=== PATIENT | female | born 1955 | race Caucasian/White ===

== ENCOUNTER 2016-12-06 06:08 | Inpatient (IN) | payer MEDICAID ==
[2016-12-06] MEDS ORDERED: Propofol 200 MG/20 ML SDV ONE ×4 (06:25→08:24)
[2016-12-06] MEDS ORDERED: fentaNYL 100 MCG/2 ML SDV ONE (06:25)
[2016-12-06] MEDS ORDERED: Midazolam 1 MG/ML 2 ML SDV ONE (06:25)
[2016-12-06] MEDS ORDERED: ceFAZolin 2 GM in Premix Bag 1 BAG IV SCH (06:30)
[2016-12-06] MEDS ORDERED: Morphine 2 MG/ML Syringe IVPUSH PRN (06:34)
[2016-12-06] MEDS ORDERED: Cyclobenzaprine 10 MG Tab PO PRN (06:34)
[2016-12-06] MEDS ORDERED: Bisacodyl 5 MG Tab PO PRN (06:34)
[2016-12-06] MEDS ORDERED: Naloxone 0.4 MG/ML SDV IVPUSH PRN (06:34)
[2016-12-06] MEDS ORDERED: Ondansetron 4 MG/2 ML SDV IVPUSH PRN ×2 (06:34→06:43)
--- NOTE | 2016-12-06 06:39 | PCM.PREANE ---
Preanesthetic Assessment - Anesthesia/Transfusion/Family Hx Anesthesia History: Prior Anesthesia Without Reaction Type of Anesthesia Reaction: Other (see below) Family History of Anesthesia Reaction: No Transfusion History: No Prior Transfusion(s) Type of Transfusion Reactions: Reports: Other (see below) - Review of Systems General: No Symptoms Pulmonary: Shortness of Breath (stress done, negative), Cough (chronic cough, SOB) Cardiovascular: No Symptoms (stress test completed, negative EF65-80%) Gastrointestinal: No symptoms Neurological: No Symptoms - Physical Assessment NPO Status Date: 12/05/16 NPO Status Time: 21:30 Pulse: 65 O2 Sat by Pulse Oximetry: 94 Respiratory Rate: 15 Blood Pressure: 132/78 Temperature: 36.4 C Weight: 111.13 kg ASA Class: 3 Mental Status: Alert & Oriented x3 Dentition: Reports: Dentures Thyro-Mental Finger Breadths: 3 Mouth Opening Finger Breadths: 3 ROM/Head Extension: Full (upper) Lungs: Clear to auscultation Cardiovascular: Regular Rate, Regular Rhythm - Allergies Allergies/Adverse Reactions: Allergies Allergy/AdvReac Type Severity Reaction Status Date / Time YUKO Inhibitors Allergy Cough Verified 12/05/16 19:17 Sulfa (Sulfonamide Allergy hives, Verified 12/05/16 19:17 Antibiotics) itching, respiratory distress - Blood Blood Available: No Product(s) Available: None - Anesthesia Plan Pre-Op Medication Ordered: None Beta Mona: Metoprolol Med Last Dose Date: 12/05/16 Med Last Dose Time: 21:30 - Acknowledgements Anesthesia Type Planned: Spinal Pt an Appropriate Candidate for the Planned Anesthesia: Yes Alternatives and Risks of Anesthesia Discussed w Pt/Guardian: Yes Pt/Guardian Understands and Agrees with Anesthesia Plan: Yes PreAnesthesia Questionnaire HEENT History: Reports: Other (see below) Other HEENT History: upper denture Cardiovascular History: Reports: Hypertension, Other (see below) Other Cardiovascular History: PACs Respiratory History: Reports: SOB, Other (see below) Other Respiratory History: chronic cough 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 Musculoskeletal History: Reports: Osteoarthritis Neurological History: Reports: None Psychiatric History: Reports: Anxiety, Depression, Other (see below) Other Psychiatric History: fatigue Endocrine/Metabolic History: Reports: Hypothyroidism, Vitamin D deficiency Hematologic History: Reports: None Immunologic History: Reports: None Oncologic (Cancer) History: Reports: None Dermatologic History: Reports: Other (see below) Other Dermatologic History: fatty 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 - Past Surgical History Head Surgeries/Procedures: Reports: None HEENT Surgical History: Reports: Tonsillectomy Cardiovascular Surgical History: Reports: Other (see below) Other Cardiovascular Surgeries/Procedures: heart surgery at age 4, "valve wouldnt close all the way" GI Surgical History: Reports: Appendectomy Female Surgical History: Reports: Hysterectomy - SUBSTANCE USE Smoking Status *Q: Former Smoker Recreational Drug Use History: No - HOME MEDS Home Medications: Home Meds Furosemide [Lasix] 40 mg PO DAILY PRN 12/05/16 [History] Metoprolol Succinate 50 mg PO DAILY 12/05/16 [History] Zolpidem Tartrate [Ambien] 2.5 mg PO BEDTIME PRN 12/05/16 [History] amLODIPine Besylate [Amlodipine Besylate] 5 mg PO DAILY 12/05/16 [History] - CURRENT (IN HOUSE) MEDS Current Meds: Current Medications Lactated Ringer's (Ringers, Lactated) 1,000 mls @ 125 mls/hr IV ASDIRECTED CELIO Lidocaine/Sodium Bicarbonate (Buffered Lidocaine 1% In Ns 8.4%) 0.25 ml IV ONETIME PRN PRN Reason: Prior to IV Start Sodium Chloride (Saline Flush) 10 ml FLUSH ASDIRECTED PRN PRN Reason: Keep Vein Open Discontinued Medications Bupivacaine HCl (Sensorcaine-Mpf 0.25%) Confirm Administered Dose 10 ml .ROUTE .STK-MED ONE Stop: 12/06/16 06:10 Bupivacaine HCl (Marcaine 0.25%) Confirm Administered Dose 30 ml .ROUTE .STK- MED ONE Stop: 12/06/16 06:10 Cefazolin Sodium (Ancef) Confirm Administered Dose 2 gm .ROUTE .STK-MED ONE Stop: 12/06/16 06:10 Fentanyl (Sublimaze) Confirm Administered Dose 100 mcg .ROUTE .STK-MED ONE Stop: 12/06/16 06:26 Iodine (Iodine 2% Mild Tincture) Confirm Administered Dose 30 ml .ROUTE .STK- MED ONE Stop: 12/06/16 06:10 Midazolam HCl (Versed 1 Mg/Ml) Confirm Administered Dose 2 mg .ROUTE .STK-MED ONE Stop: 12/06/16 06:26 Propofol (Diprivan 20 Ml) Confirm Administered Dose 200 mg .ROUTE .STK-MED ONE Stop: 12/06/16 06:26 Tranexamic Acid (Cyklokapron) Confirm Administered Dose 1,000 mg .ROUTE .STK- MED ONE Stop: 12/06/16 06:10 Triamcinolone Acetonide (Kenalog-40) Confirm Administered Dose 80 mg .ROUTE .STK -MED ONE Stop: 12/06/16 06:10
[2016-12-06] MEDS ORDERED: fentaNYL 100 MCG/2 ML SDV IVPUSH PRN (06:43)
[2016-12-06] MEDS ORDERED: HYDROmorphone 0.5 MG/0.5 ML Syringe IVPUSH PRN (06:43)
[2016-12-06] MEDS ORDERED: Metoclopramide 10 MG/2 ML SDV IVPUSH PRN (06:43)
--- NOTE | 2016-12-06 06:51 | PCM.CONS ---
H&P History of Present Illness - General Date of Service: 12/06/16 Admit Problem/Dx: Admission Diagnosis/Problem Admission Diagnosis/Problem Osteoarthritis of knee Source of Information: Patient, Old records, Provider, RN notes reviewed History Limitations: Reports: Physical impairment - History of Present Illness Initial Comments - Free Text/Narative: This is a 61-year-old, white female, with past medical history of Hypertension, OA, Exertional Shortness of Breath, Essential Tremors, Hypothyroidism, Anxiety and Depression Vitamin D Deficiency, ET and Obesity who underwent right total knee arthroplasty and left knee joint injection post operative day zero. Patient seems to be doing relatively well. Her pain is controlled. She denies any acute issues. Hospital Medicine was consulted for postoperative care. - Related Data Allergies/Adverse Reactions: Allergies Allergy/AdvReac Type Severity Reaction Status Date / Time YUKO Inhibitors Allergy Cough Verified 12/06/16 07:12 Sulfa (Sulfonamide Allergy hives, Verified 12/06/16 07:12 Antibiotics) itching, respiratory distress Home Medications: Home Meds Furosemide [Lasix] 40 mg PO DAILY PRN 12/05/16 [History] Metoprolol Succinate 50 mg PO DAILY 12/05/16 [History] Zolpidem Tartrate [Ambien] 2.5 mg PO BEDTIME PRN 12/05/16 [History] amLODIPine Besylate [Amlodipine Besylate] 5 mg PO DAILY 12/05/16 [History] Past Medical History HEENT History: Reports: Other (see below) Other HEENT History: upper denture Cardiovascular History: Reports: Hypertension, Other (see below) Other Cardiovascular History: PACs Respiratory History: Reports: SOB, Other (see below) Other Respiratory History: chronic cough 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 Musculoskeletal History: Reports: Osteoarthritis Neurological History: Reports: None Psychiatric History: Reports: Anxiety, Depression, Other (see below) Other Psychiatric History: fatigue Endocrine/Metabolic History: Reports: Hypothyroidism, Vitamin D deficiency Hematologic History: Reports: None Immunologic History: Reports: None Oncologic (Cancer) History: Reports: None Dermatologic History: Reports: Other (see below) Other Dermatologic History: fatty 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 - Past Surgical History Head Surgeries/Procedures: Reports: None HEENT Surgical History: Reports: Tonsillectomy Cardiovascular Surgical History: Reports: Other (see below) Other Cardiovascular Surgeries/Procedures: heart surgery at age 4, "valve wouldnt close all the way" GI Surgical History: Reports: Appendectomy Female Surgical History: Reports: Hysterectomy Social & Family History - Tobacco Use Smoking Status *Q: Former Smoker Used Tobacco, but Quit: Yes Month Tobacco Last Used: 1999 - Caffeine Use Caffeine Use: Reports: None - Recreational Drug Use Recreational Drug Use: No H&P Review of Systems - Review of Systems: Review Of Systems: See Below General: Denies: fever, chills, malaise, weakness, fatigue HEENT: Reports: no symptoms Pulmonary: Denies: Shortness of Breath, Wheezing Cardiovascular: Denies: chest pain, palpitations, dyspnea on exertion, edema, lightheadedness Gastrointestinal: Denies: Abdominal pain, Nausea, Vomiting Genitourinary: Reports: no symptoms Musculoskeletal: Reports: no symptoms Skin: Denies: cyanosis, rash Psychiatric: Denies: depression, anxiety, hallucinations, suicidal ideation Neurological: Reports: Tremors (baseline), Difficulty Walking, Gait Disturbance. Denies: Confusion, Weakness Hematologic/Lymphatic: Reports: no symptoms Immunologic: Reports: no symptoms Exam - Exam Exam: See Below - Vital Signs Vital Signs: Last Vital Signs Temp 36.4 C 12/06/16 06:42 Pulse 65 12/06/16 06:42 Resp 15 12/06/16 06:42 BP 132/78 12/06/16 06:42 Pulse Ox 94 L 12/06/16 06:42 Weight: 111.13 kg - Exam Quality Assessment: supplemental oxygen General: alert, oriented, cooperative, other (Obese). No: mild distress HEENT: Conjunctiva clear, EACs clear, EOMI, Hearing intact, Mucosa moist & pink , Nares patent, Normal nasal septum, Posterior pharynx clear, Pupils equal, Pupils reactive Neck: supple, trachea midline, 2+ carotid pulse wo bruit, full range of motion. No: JVD Lungs: Clear to auscultation, Normal respiratory effort Cardiovascular: regular rate, regular rhythm Abdomen: normal bowel sounds, soft, organomegaly, other (Obese) (Female) Exam: Other (Indwelling miller catheter) Rectal (Female) Exam: Deferred Back Exam: normal inspection, decreased range of motion Extremities: normal inspection, normal pulses. No: clubbing, cyanosis, calf tenderness, edema Peripheral Pulses: 2+: posterior tibial (L), dorsalis pedis (R), 3+: dorsalis pedis (L) Skin: warm, dry, intact Neuro Extensive - Mental Status: oriented x3, normal cognition, memory intact Neuro Extensive - Motor, Sensory, Reflexes: CN II-XII intact (limitd but fairly intact), abnormal gait Psychiatric: alert, normal affect, normal mood Consult PN Assessment/Plan POD#: 0 Problem List Initiated/Reviewed/Updated: Yes Plan: Assessment: Acute: Post-Operative Care State - Stable - Continue to monitor for hemodynamic instability S/p Right Total Knee Arthroplasty and Left Knee Joint Injection - Stable - DVT and Pain Management as per primary team Hx/o Chronic B/L Knee Pain - Pain Management as per primary team Chronic: HTN Exertional Shortness of Breath Essential Tremors Hypothyroidism Anxiety and Depression Vitamin D Deficiency Morbid Obesity with BMI 40.8 Plan: She is clinically stable Routine AM labs Continue home meds IS q2 awake Thank you for the opportunity to participate in the management of this patient. Requesting Provider: Dr. Mera Date Consult Requested: 12/06/16 Reason for Consult: Post-Operative Care Patient History Reviewed: Yes Admission H&P Reviewed: Yes Consult Result/Summary: Stable
[2016-12-06] MEDS ORDERED: Morphine PF 10 MG/10 ML SDV ONE (06:54)
[2016-12-06] MEDS ORDERED: Sodium Chloride 0.9% 10 ML Syringe FLUSH PRN (07:00)
[2016-12-06] MEDS ORDERED: Lactated Ringers 1,000 ML IV SCH (07:00)
[2016-12-06] MEDS ORDERED: Lidocaine 1%/Sod Bicarbonate in NS 8.4% 1 ML Syringe IV PRN (07:00)
[2016-12-06] MEDS ORDERED: Phenylephrine/Normal Saline 100 MCG/ML 10 ML Syringe ONE (07:35)
[2016-12-06] MEDS: Morphine 8 MG, EPINEPHrine 0.3 MG, Cefuroxime 750 MG, Ketorolac 30 MG, Sodium Chloride ... ONE ×15 (07:51→11:23)
[2016-12-06] MEDS: ceFAZolin 1 GM Vial ONE ×2 (07:51→08:18)
[2016-12-06] MEDS: Iodine/Sodium Iodide 2% Tincture 30 ML Bottle ONE ×2 (07:51→08:14)
[2016-12-06] MEDS: Bupivacaine 0.25% 30 ML SDV ONE ×2 (07:52→08:23)
[2016-12-06] MEDS: Bupivacaine 0.25% 10 ML SDV ONE ×2 (07:52→08:50)
[2016-12-06] MEDS: Triamcinolone Acetonide 40 MG/ML 1 ML MDV ONE ×2 (07:53→08:50)
[2016-12-06] MEDS ORDERED: ePHEDrine/Normal Saline 25 MG/5 ML Syringe ONE (08:19)
[2016-12-06] MEDS ORDERED: Lactated Ringers 1,000 ML ONE ×2 (08:53)
--- NOTE | 2016-12-06 09:08 | PCM.POSTAN ---
POST ANESTHESIA ASSESSMENT - MENTAL STATUS Mental Status: alert, oriented - VITAL SIGNS Pulse Rate: 79 SaO2: 94 Resp Rate: 16 Blood Pressure: 96/67 Temperature: 37.0 C - RESPIRATORY Respiratory Status: respiratory rate WNL, airway patent, O2 saturation stable, supplemental oxygen - CARDIOVASCULAR CV Status: pulse rate WNL, blood pressure stable - GASTROINTESTINAL GI Status: no symptoms - PAIN Pain Score: 0 - POST OP HYDRATION Hydration Status: adequate & stable
[2016-12-06] MEDS ORDERED: Meperidine PF 50 MG/ML Syringe IVPUSH SCH (09:30)
--- NOTE | 2016-12-06 10:02 | PCM.OPNOTE ---
- General Post-Op/Procedure Note Date of Surgery/Procedure: 12/06/16 Operative Procedure(s): right total knee arthroplasty with left knee corticosteroid injection Pre Op Diagnosis: right knee osteoarthrosis Post-Op Diagnosis: Same Anesthesia Technique: Local, MAC, Spinal Primary Surgeon: Rajinder Mera Anesthesia Provider: Latisha Gr Housekeeping Aid: Lisa Hastings Housekeeping Aid: Deysi Vogt EBL in mLs: 200 Complications: None Condition: Good
--- NOTE | 2016-12-06 10:18 | CR ---
Right knee: Two views of the right knee were obtained. Comparison: No previous knee exam. Knee prosthesis is seen. Components are aligned. Underlying bony structures are intact. Soft tissue air noted secondary to the procedure. Impression: 1. Recently placed right knee prosthesis. No acute abnormality is appreciated. Diagnostic code #2
[2016-12-06] MEDS: diphenhydrAMINE 50 MG/ML SDV IVPUSH PRN ×2 (11:05→19:11)
[2016-12-06] MEDS: Famotidine 20 MG Tab PO SCH ×2 (11:22→18:38)
[2016-12-06] MEDS ORDERED: Temazepam 15 MG Cap PO PRN (13:44)
[2016-12-06] MEDS: ceFAZolin 2 GM in Premix Bag 1 BAG IV SCH ×2 (15:15→21:52)
[2016-12-06] MEDS ORDERED: Furosemide 40 MG Tab PO PRN (16:00)
--- NOTE | 2016-12-06 17:57 | OR ---
DATE OF OPERATION: 12/06/2016 SURGEON: Rajinder Mera MD OPERATION PERFORMED: Right total knee arthroplasty with left knee corticosteroid injection. PREOPERATIVE DIAGNOSIS: Right knee osteoarthrosis. POSTOPERATIVE DIAGNOSIS: Right knee osteoarthrosis. ANESTHESIA: Local MAC with spinal. ANESTHESIA PROVIDER: Latisha Gr CRNA. FLOW TRADER: Lisa Hastings PA-C and Deysi Vogt LPN. ESTIMATED BLOOD LOSS: 200 mL. COMPLICATIONS: None. CONDITION: Stable. IMPLANTS: 1. [place] size 4 PS femur. 2. Bronson size 4 universal tibial baseplate. 3. Bronson size 4 of 9 mm PS X3 polyethylene. 4. [place] 29 x 9 mm asymmetric patella. DESCRIPTION OF PROCEDURE: The patient was identified in the preop holding area. Proper site was marked and identified by the surgeon. The patient was taken back to the operating theater. After adequate anesthesia, the patient's right lower extremity had a nonsterile tourniquet applied and it was then sterilely prepped and draped in the usual sterile fashion. OR timeout was performed. The patient received 2 g IV Ancef. At this time, the right lower extremity was exsanguinated. Tourniquet was insufflated to 300 mmHg. Standard medial parapatellar incision was made. Medial parapatellar arthrotomy was created. Deep fibers of the MCL were raised and anterior fat pad was resected. At this time, attention was turned to the patella. Patella measured 22, it was resected to a 13 for a 29 x 9 mm patella. Drill holes were then drilled and found to be in adequate position. The drill was then drilled in the distal femur and the intramedullary distal femoral cutting guide was then placed. 8 mm was resected off the distal femur and was found to be an adequate resection. Sizing guide was placed. It was found to be a size 4 PS femur that was shown on the implant record at the beginning of this dictation. The drill holes were drilled for the epicondylar axis using Whitesides line and epicondyles as reference. At this time, the 4-in- 1 cutting block was placed. An anterior posterior and anterior and posterior chamfer cuts were then completed. The correct size box cut was then placed and the box cut was completed and found to be an adequate resection. Attention was turned to the tibia. The posterior medial lateral retractors were placed. The extramedullary tibial guide was placed. It was placed in the old footprint of the ACL. It was aligned with the center of the ankle and 0 degrees of slope, 9 mm was then resected off the unaffected lateral side. There was found to be an acceptable reduction. At this time, posterior osteophytes were removed along with medial and lateral meniscus. A trial implant was placed with a correct sized tibia that was mentioned at the beginning of the dictation. A 9 mm X3 PS polyethylene was then placed. The patient's knee was brought through range of motion. The patella was tracking centrally and was stable to varus and valgus stress. Alignment was found to be roughly at 0 degrees. At this time, cement was mixed on the back table. The tibia was stamped and drilled in proper rotation. All cut surfaces were irrigated with pulse lavage irrigation with Ancef and then completely dried. Once this was completed, then the cement was ready. The universal tibial base plate was cemented in place. Next, 4 PS femur cemented into place and the 9 mm X3 polyethylene was placed. The patient's knee was brought into full extension. Excess cement was removed. The patella was then cemented in place at this time. Tourniquet was deflated. One liter dilute Betadine solution was irrigated through the knee along with 3 L of pulse lavage irrigation with Ancef. Periarticular injection was then completed. The patient's knee was brought through a range of motion. Once the cement had time to set up and it was found to be stable to varus valgus stress, the patella was tracking centrally with full range of motion. At this time, a #2 barbed suture was used for closure of the medial parapatellar arthrotomy. Topical tranexamic acid was placed. 2-0 Vicryl was used subcutaneously, a running 3-0 Monocryl was used subcuticularly. The patient tolerated the procedure well and was sent to the PACU in stable condition. The patient also received a corticosteroid injection after the right total knee dressing was applied under sterile technique 2 mL of 40 mg Kenalog and 4 mL of 0.25% Marcaine were injected to the left knee. The patient tolerated that as well. MMODAL /[id number]
[2016-12-06] MEDS: Acetaminophen/oxyCODONE 325-5 MG Tab PO PRN (20:46)
[2016-12-06] MEDS: amLODIPine 5 MG Tab PO SCH (20:53)
[2016-12-06] MEDS: Docusate Sodium 100 MG Cap PO SCH (20:53)
[2016-12-06] MEDS: Metoprolol Succinate 50 MG Tab.ER PO SCH (20:54)
[2016-12-06] MEDS ORDERED: Zolpidem 5 MG Tab PO PRN (21:00)
[2016-12-06] MEDS ORDERED: Magnesium Hydroxide 400 MG/5 ML Susp 30 ML Cup PO PRN (21:00)
[2016-12-06] MEDS ORDERED: Sennosides 8.6 MG Tab PO PRN (21:00)
[2016-12-07] MEDS: Acetaminophen/oxyCODONE 325-5 MG Tab PO PRN ×3 (06:55→14:51)
[2016-12-07] MEDS: ceFAZolin 2 GM in Premix Bag 1 BAG IV SCH (06:59)
[2016-12-07] MEDS: Famotidine 20 MG Tab PO SCH (06:59)
[2016-12-07] MEDS ORDERED: Multivitamins,Therapeutic Tab PO SCH (07:00)
--- NOTE | 2016-12-07 07:44 | PCM.CONSN ---
- General Info Date of Service: 12/07/16 Admission Dx/Problem (Free Text): Admission Diagnosis/Problem Admission Diagnosis/Problem Osteoarthritis of knee POD #[address] Mera Doing well, pain under good to fair control. Worked with PT already this am. VSS Functional Status: Reports: pain controlled, tolerating diet, ambulating, urinating. Denies: new symptoms - Review of Systems General: Reports: No Symptoms HEENT: Reports: no symptoms Pulmonary: Reports: no symptoms Cardiovascular: Reports: No Symptoms Gastrointestinal: Reports: No symptoms Genitourinary: Reports: no symptoms Musculoskeletal: Reports: leg pain Skin: Reports: no symptoms Neurological: Reports: No Symptoms Psychiatric: Reports: no symptoms - Patient Data Vitals - most recent: Last Vital Signs Temp 97.7 F 12/07/16 01:08 Pulse 61 12/07/16 01:10 Resp 18 12/07/16 01:08 BP 123/69 12/07/16 01:10 Pulse Ox 96 12/07/16 01:10 Weight - most recent: 245 lb I&O - last 24 hours: Intake & Output 12/06/16 12/07/16 12/07/16 22:59 06:59 14:59 Intake Total 2970 50 Output Total 1850 Balance 1120 50 Lab Results last 24 hrs: Laboratory Results - last 24 hr 12/07/16 Range/Units 05:56 WBC 11.15 H (3.98-10.04) K/mm3 RBC 4.20 (3.98-5.22) M/mm3 Hgb 12.5 (11.2-15.7) gm/L Hct 38.6 (34.1-44.9) % MCV 91.9 (79.4-94.8) fl MCH 29.8 (25.6-32.2) pg MCHC 32.4 (32.2-35.5) g/dl RDW Std Deviation 45.9 (36.4-46.3) fL Plt Count 278 (182-369) K/mm3 MPV 10.2 (9.4-12.3) fl Neut % (Auto) 85.8 H (34.0-71.1) % Lymph % (Auto) 8.0 L (19.3-51.7) % [place] % (Auto) 6.0 (4.7-12.5) % Eos % (Auto) 0 L (0.7-5.8) Baso % (Auto) 0.0 L (0.1-1.2) % Neut # (Auto) 9.57 H (1.56-6.13) K/mm3 Lymph # (Auto) 0.89 L (1.18-3.74) K/mm3 [place] # (Auto) 0.67 H (0.24-0.36) K/mm3 Eos # (Auto) 0.00 L (0.04-0.36) K/mm3 Baso # (Auto) 0.00 L (0.01-0.08) K/mm3 Manual Slide Review Abnormal smear Med Orders - Current: Current Medications Amlodipine Besylate (Norvasc) 5 mg PO DAILY [facility] Last Admin: 12/06/16 20:53 Dose: 5 mg Aspirin (Ecotrin) 325 mg PO BID [facility] Bisacodyl (Dulcolax) 5 mg PO DAILY PRN PRN Reason: Constipation Cyclobenzaprine HCl (Flexeril) 10 mg PO TID PRN PRN Reason: Spasms Last Admin: 12/07/16 05:18 Dose: 10 mg Diphenhydramine HCl (Benadryl) 25 mg IVPUSH Q6H PRN PRN Reason: itching Last Admin: 12/06/16 19:11 Dose: 25 mg Docusate Sodium (Colace) 100 mg PO BID [facility] Last Admin: 12/06/16 20:53 Dose: 100 mg Famotidine (Pepcid) 20 mg PO Q12H [facility] Last Admin: 12/07/16 06:59 Dose: 20 mg Furosemide (Lasix) 40 mg PO DAILY PRN PRN Reason: swelling Magnesium Hydroxide (Milk Of Magnesia) 30 ml PO BID PRN PRN Reason: Constipation Metoclopramide HCl (Reglan) 10 mg IVPUSH ONETIME PRN PRN Reason: Nausea/Vomiting Metoprolol Succinate (Toprol Xl) 50 mg PO DAILY [facility] Last Admin: 12/06/16 20:54 Dose: 50 mg Morphine Sulfate (Morphine) 2 mg IVPUSH Q2H PRN PRN Reason: Breakthrough Pain Multivitamins (Thera) 1 each PO WITHBREAKFAST [facility] Last Admin: 12/07/16 06:59 Dose: 1 each Ondansetron HCl (Zofran) 4 mg IVPUSH Q6H PRN PRN Reason: Nausea/Vomiting Ondansetron HCl (Zofran) 4 mg IVPUSH ONETIME PRN PRN Reason: Nausea/Vomiting Oxycodone/Acetaminophen (Percocet 325-5 Mg) 1 - 2 tab PO Q4H PRN PRN Reason: Pain Last Admin: 12/07/16 06:55 Dose: 2 tab Senna (Senna) 8.6 mg PO BID PRN PRN Reason: Constipation Sodium Chloride (Saline Flush) 10 ml FLUSH ASDIRECTED PRN PRN Reason: Keep Vein Open Temazepam (Restoril) 15 mg PO BEDTIME PRN PRN Reason: Insomnia Zolpidem Tartrate (Ambien) 2.5 mg PO BEDTIME PRN PRN Reason: Insomnia Discontinued Medications Amlodipine Besylate (Norvasc) 5 mg PO DAILY [facility] Bupivacaine HCl (Sensorcaine-Mpf 0.25%) Confirm Administered Dose 10 ml .ROUTE .STK-MED ONE Stop: 12/06/16 06:10 Last Admin: 12/06/16 08:50 Dose: 4 ml Bupivacaine HCl (Marcaine 0.25%) Confirm Administered Dose 30 ml .ROUTE .STK- MED ONE Stop: 12/06/16 06:10 Last Admin: 12/06/16 08:23 Dose: 30 ml Cefazolin Sodium (Ancef) Confirm Administered Dose 2 gm .ROUTE .STK-MED ONE Stop: 12/06/16 06:10 Last Admin: 12/06/16 08:18 Dose: 2 gm Morphine Sulfate 8 mg/Epinephrine HCl 0.3 mg/Cefuroxime Sodium 750 mg/Ketorolac Tromethamine 30 mg/Sodium Chloride 27.9 ml 0 mg .XX ONETIME ONE Stop: 12/06/16 07:46 Last Admin: 12/06/16 11:23 Dose: Not Given Ephedrine Sulfate (Ephedrine In Ns) Confirm Administered Dose 25 mg .ROUTE .STK- MED ONE Stop: 12/06/16 08:20 Fentanyl (Sublimaze) Confirm Administered Dose 100 mcg .ROUTE .STK-MED ONE Stop: 12/06/16 06:26 Fentanyl (Sublimaze) 50 mcg IVPUSH Q5M PRN PRN Reason: pain Hydromorphone HCl (Dilaudid) 0.5 mg IVPUSH Q15M PRN PRN Reason: Pain (severe 7-10) Stop: 12/06/16 06:59 Lactated Ringer's (Ringers, Lactated) 1,000 mls @ 125 mls/hr IV ASDIRECTED [facility] Last Admin: 12/06/16 06:30 Dose: 125 mls/hr Cefazolin Sodium/Dextrose 2 gm (/ Premix) 50 mls @ 100 mls/hr IV Q8H [facility] Stop: 12/06/16 22:59 Last Admin: 12/06/16 15:14 Dose: Not Given Lactated Ringer's (Ringers, Lactated) Confirm Administered Dose 1,000 mls @ as directed .ROUTE .STK-MED ONE Stop: 12/06/16 08:54 Lactated Ringer's (Ringers, Lactated) Confirm Administered Dose 1,000 mls @ as directed .ROUTE .STK-MED ONE Stop: 12/06/16 08:54 Cefazolin Sodium/Dextrose 2 gm (/ Premix) 50 mls @ 100 mls/hr IV Q8H [facility] Stop: 12/07/16 06:59 Last Admin: 12/07/16 06:59 Dose: 100 mls/hr Iodine (Iodine 2% Mild Tincture) Confirm Administered Dose 30 ml .ROUTE .STK- MED ONE Stop: 12/06/16 06:10 Last Admin: 12/06/16 08:14 Dose: 18 ml Lidocaine/Sodium Bicarbonate (Buffered Lidocaine 1% In Ns 8.4%) 0.25 ml IV ONETIME PRN PRN Reason: Prior to IV Start Last Admin: 12/06/16 06:29 Dose: 0.25 ml Meperidine HCl (Demerol) 12.5 mg IVPUSH ONETIME [facility] Stop: 12/06/16 18:00 Last Admin: 12/06/16 09:40 Dose: 12.5 mg Metoprolol Succinate (Toprol Xl) 50 mg PO DAILY [facility] Midazolam HCl (Versed 1 Mg/Ml) Confirm Administered Dose 2 mg .ROUTE .STK-MED ONE Stop: 12/06/16 06:26 Morphine Sulfate (Duramorph Pf) Confirm Administered Dose 10 mg .ROUTE .STK-MED ONE Stop: 12/06/16 06:55 Naloxone HCl (Narcan) 0.1 mg IVPUSH Q5M PRN PRN Reason: Oversedation Stop: 12/06/16 06:50 Phenylephrine HCl (Phenylephrine In Ns 100 Mcg/Ml) Confirm Administered Dose 1 mg .ROUTE .STK-MED ONE Stop: 12/06/16 07:36 Propofol (Diprivan 20 Ml) Confirm Administered Dose 200 mg .ROUTE .STK-MED ONE Stop: 12/06/16 06:26 Propofol (Diprivan 20 Ml) Confirm Administered Dose 200 mg .ROUTE .STK-MED ONE Stop: 12/06/16 06:57 Propofol (Diprivan 20 Ml) Confirm Administered Dose 200 mg .ROUTE .STK-MED ONE Stop: 12/06/16 07:43 Propofol (Diprivan 20 Ml) Confirm Administered Dose 200 mg .ROUTE .STK-MED ONE Stop: 12/06/16 08:25 Tranexamic Acid (Cyklokapron) Confirm Administered Dose 1,000 mg .ROUTE .STK- MED ONE Stop: 12/06/16 06:10 Last Admin: 12/06/16 08:29 Dose: 1,000 mg Triamcinolone Acetonide (Kenalog-40) Confirm Administered Dose 80 mg .ROUTE .STK -MED ONE Stop: 12/06/16 06:10 Last Admin: 12/06/16 08:50 Dose: 80 mg - Exam Quality Assessment: supplemental oxygen (1L/NC overnight), DVT prophylaxis General: alert, oriented, cooperative, no acute distress HEENT: Pupils equal, Pupils reactive, EOMI, Mucous membr. moist/pink Neck: supple Lungs: Clear to auscultation, Normal respiratory effort Cardiovascular: Regular Rate, Regular Rhythm Abdomen: bowel sounds present, soft, no tenderness, no distension (Female) Exam: Deferred Extremities: no edema, no calf tenderness, other (teds/SCD's bilat) Peripheral Pulses: 1+: dorsalis pedis (L), dorsalis pedis (R) Skin: warm, dry, intact Neurological: no new focal deficit Psy/Mental Status: alert, normal affect, normal mood Consult PN Assessment/Plan POD#: 1 (1) S/P total knee arthroplasty SNOMED Code(s): 6408436283192, 159414515, 2958814964152 Code(s): Z96.659 - PRESENCE OF UNSPECIFIED ARTIFICIAL KNEE JOINT Priority: High Current Visit: Yes Qualifiers: Laterality: right Qualified Code(s): Z96.651 - Presence of right artificial knee joint (2) Osteoarthritis SNOMED Code(s): 592972982 Code(s): M19.90 - UNSPECIFIED OSTEOARTHRITIS, UNSPECIFIED SITE Priority: High Current Visit: Yes Qualifiers: Osteoarthritis location: knee Osteoarthritis type: primary Laterality: right Qualified Code(s): M17.11 - Unilateral primary osteoarthritis, right knee (3) HTN (hypertension) SNOMED Code(s): 25398739 Code(s): I10 - ESSENTIAL (PRIMARY) HYPERTENSION Priority: Medium Current Visit: No Qualifiers: Hypertension type: essential hypertension Qualified Code(s): I10 - Essential (primary) hypertension (4) Hypothyroid SNOMED Code(s): 71030542 Code(s): E03.9 - HYPOTHYROIDISM, UNSPECIFIED Priority: Medium Current Visit: No Qualifiers: Hypothyroidism type: unspecified Qualified Code(s): E03.9 - Hypothyroidism , unspecified (5) Obesity SNOMED Code(s): 236814132 Code(s): E66.9 - OBESITY, UNSPECIFIED Priority: Medium Current Visit: No Qualifiers: Obesity type: unspecified obesity type Obesity severity: morbid Qualified Code(s): E66.01 - Morbid (severe) obesity due to excess calories (6) Essential tremor SNOMED Code(s): 441174286 Code(s): G25.0 - ESSENTIAL TREMOR Priority: Medium Current Visit: No (7) Anxiety and depression SNOMED Code(s): 620841279 Code(s): F41.9 - ANXIETY DISORDER, UNSPECIFIED; F32.9 - MAJOR DEPRESSIVE DISORDER, SINGLE EPISODE, UNSPECIFIED Priority: Medium Current Visit: No (8) Hypovitaminosis D SNOMED Code(s): 42578605 Code(s): E55.9 - VITAMIN D DEFICIENCY, UNSPECIFIED Priority: Medium Current Visit: No Problem List Initiated/Reviewed/Updated: Yes Plan: I/P: S/P Rt TKA with Dr. Mera, POD #1 -DVT and pain management per Ortho/primary team -PT/OT -IS/RT -VSS -Hgb 12.5 - O2 weaned this am Chronic conditions: stable, cont usual home meds HTN Hypothyroidism Obesity Hypovitaminosis D Anxiety/Depression Essential tremor Other: GI prophylax CM/LOW for assistance with DC planning She is stable for discharge from Hospitalist standpoint today. Family however is no longer able to stay with her, SW is working with her on DC plan. Patient is Full Code status.
--- NOTE | 2016-12-07 08:14 | PCM48HPAN ---
Post Anesthesia Note - EVALUATION WITHIN 48HRS OF ANESTHETIC Vital Signs in Normal Range: Yes Patient Participated in Evaluation: Yes Respiratory Function Stable: Yes Airway Patent: Yes Cardiovascular Function Stable: Yes Hydration Status Stable: Yes Pain Control Satisfactory: Yes Nausea and Vomiting Control Satisfactory: Yes Mental Status Recovered: Yes
[2016-12-07] MEDS ORDERED: Metoprolol Succinate 50 MG Tab.ER PO SCH (09:00)
[2016-12-07] MEDS ORDERED: amLODIPine 5 MG Tab PO SCH (09:00)
[2016-12-07] MEDS ORDERED: Aspirin 325 MG Tab.EC PO SCH (09:00)
[2016-12-07] MEDS: Metoprolol Succinate 50 MG Tab.ER PO SCH (09:09)
[2016-12-07] MEDS: amLODIPine 5 MG Tab PO SCH (09:09)
[2016-12-07] MEDS: Docusate Sodium 100 MG Cap PO SCH (09:09)
[2016-12-07 11:55] VITALS: BP 117/83
--- NOTE | 2016-12-07 17:07 | PCM.SURGPN ---
- General Info Date of Service: 12/07/16 POD#: 1 Functional Status: Reports: pain controlled, tolerating diet, ambulating, urinating, other (The pt has met inpatient therapy goals and nursing states the pt has been independent in her room.). Denies: new symptoms - Patient Data Vitals - most recent: Last Vital Signs Temp 97.2 F 12/07/16 11:46 Pulse 62 12/07/16 11:46 Resp 14 12/07/16 11:46 BP 117/83 12/07/16 11:46 Pulse Ox 96 12/07/16 11:46 Weight - most recent: 245 lb I&O - last 24 hours: Intake & Output 12/07/16 12/07/16 12/07/16 06:59 14:59 22:59 Intake Total 1250 210 800 Output Total 2900 2000 Balance -1650 210 -1200 Lab Results last 24 hrs: Laboratory Results - last 24 hr 12/07/16 12/07/16 Range/Units 05:56 05:56 WBC 11.15 H (3.98-10.04) K/mm3 RBC 4.20 (3.98-5.22) M/mm3 Hgb 12.5 (11.2-15.7) gm/L Hct 38.6 (34.1-44.9) % MCV 91.9 (79.4-94.8) fl MCH 29.8 (25.6-32.2) pg MCHC 32.4 (32.2-35.5) g/dl RDW Std Deviation 45.9 (36.4-46.3) fL Plt Count 278 (182-369) K/mm3 MPV 10.2 (9.4-12.3) fl Neut % (Auto) 85.8 H (34.0-71.1) % Lymph % (Auto) 8.0 L (19.3-51.7) % [place] % (Auto) 6.0 (4.7-12.5) % Eos % (Auto) 0 L (0.7-5.8) Baso % (Auto) 0.0 L (0.1-1.2) % Neut # (Auto) 9.57 H (1.56-6.13) K/mm3 Lymph # (Auto) 0.89 L (1.18-3.74) K/mm3 [place] # (Auto) 0.67 H (0.24-0.36) K/mm3 Eos # (Auto) 0.00 L (0.04-0.36) K/mm3 Baso # (Auto) 0.00 L (0.01-0.08) K/mm3 Manual Slide Review Abnormal smear Sodium 136 (136-145) mEq/L Potassium 4.3 (3.5-5.1) mEq/L Chloride 104 (98-107) mEq/L Carbon Dioxide 24 (21-32) mEq/L Anion Gap 12.3 (5-15) BUN 13 (7-18) mg/dL Creatinine 0.8 (0.55-1.02) mg/dL Est Cr Clr Drug Dosing 64.77 mL/min Estimated GFR (MDRD) > 60 (>60) mL/min BUN/Creatinine Ratio 16.3 (14-18) Glucose 144 H (80-115) mg/dL Calcium 8.6 (8.5-10.1) mg/dL Total Bilirubin 0.3 (0.2-1.0) mg/dL AST 17 (15-37) U/L ALT 36 (14-59) U/L Alkaline Phosphatase 99 (46-116) U/L Total Protein 7.1 (6.4-8.2) g/dl Albumin 3.1 L (3.4-5.0) g/dl Globulin 4.0 gm/dL Albumin/Globulin Ratio 0.8 L (1-2) Med Orders - Current: Current Medications Discontinued Medications Amlodipine Besylate (Norvasc) 5 mg PO DAILY COUNT [facility]CLUD[facility] Amlodipine Besylate (Norvasc) 5 mg PO DAILY COUNT [facility]CLUD[facility] Last Admin: 12/07/16 09:09 Dose: 5 mg Aspirin (Ecotrin) 325 mg PO BID COUNT [facility]CLUD[facility] Last Admin: 12/07/16 09:09 Dose: 325 mg Bisacodyl (Dulcolax) 5 mg PO DAILY PRN PRN Reason: Constipation Bupivacaine HCl (Sensorcaine-Mpf 0.25%) Confirm Administered Dose 10 ml .ROUTE .STK-MED ONE Stop: 12/06/16 06:10 Last Admin: 12/06/16 08:50 Dose: 4 ml Bupivacaine HCl (Marcaine 0.25%) Confirm Administered Dose 30 ml .ROUTE .STK- MED ONE Stop: 12/06/16 06:10 Last Admin: 12/06/16 08:23 Dose: 30 ml Cefazolin Sodium (Ancef) Confirm Administered Dose 2 gm .ROUTE .STK-MED ONE Stop: 12/06/16 06:10 Last Admin: 12/06/16 08:18 Dose: 2 gm Morphine Sulfate 8 mg/Epinephrine HCl 0.3 mg/Cefuroxime Sodium 750 mg/Ketorolac Tromethamine 30 mg/Sodium Chloride 27.9 ml 0 mg .XX ONETIME ONE Stop: 12/06/16 07:46 Last Admin: 12/06/16 11:23 Dose: Not Given Cyclobenzaprine HCl (Flexeril) 10 mg PO TID PRN PRN Reason: Spasms Last Admin: 12/07/16 05:18 Dose: 10 mg Diphenhydramine HCl (Benadryl) 25 mg IVPUSH Q6H PRN PRN Reason: itching Last Admin: 12/06/16 19:11 Dose: 25 mg Docusate Sodium (Colace) 100 mg PO BID COUNT [facility]CLUD[facility] Last Admin: 12/07/16 09:09 Dose: 100 mg Ephedrine Sulfate (Ephedrine In Ns) Confirm Administered Dose 25 mg .ROUTE .STK- MED ONE Stop: 12/06/16 08:20 Famotidine (Pepcid) 20 mg PO Q12H COUNT INCLUDES [facility] Last Admin: 12/07/16 06:59 Dose: 20 mg Fentanyl (Sublimaze) Confirm Administered Dose 100 mcg .ROUTE .STK-MED ONE Stop: 12/06/16 06:26 Fentanyl (Sublimaze) 50 mcg IVPUSH Q5M PRN PRN Reason: pain Furosemide (Lasix) 40 mg PO DAILY PRN PRN Reason: swelling Hydromorphone HCl (Dilaudid) 0.5 mg IVPUSH Q15M PRN PRN Reason: Pain (severe 7-10) Stop: 12/06/16 06:59 Lactated Ringer's (Ringers, Lactated) 1,000 mls @ 125 mls/hr IV ASDIRECTED COUNT INCLUDES THE [facility] Last Admin: 12/06/16 06:30 Dose: 125 mls/hr Cefazolin Sodium/Dextrose 2 gm (/ Premix) 50 mls @ 100 mls/hr IV Q8H COUNT INCLUDES [facility] Stop: 12/06/16 22:59 Last Admin: 12/06/16 15:14 Dose: Not Given Lactated Ringer's (Ringers, Lactated) Confirm Administered Dose 1,000 mls @ as directed .ROUTE .[facility] ONE Stop: 12/06/16 08:54 Lactated Ringer's (Ringers, Lactated) Confirm Administered Dose 1,000 mls @ as directed .ROUTE .[facility] ONE Stop: 12/06/16 08:54 Cefazolin Sodium/Dextrose 2 gm (/ Premix) 50 mls @ 100 mls/hr IV Q8H COUNT [facility]CLUDES [facility] Stop: 12/07/16 06:59 Last Admin: 12/07/16 06:59 Dose: 100 mls/hr Iodine (Iodine 2% Mild Tincture) Confirm Administered Dose 30 ml .ROUTE .[facility] ONE Stop: 12/06/16 06:10 Last Admin: 12/06/16 08:14 Dose: 18 ml Lidocaine/Sodium Bicarbonate (Buffered Lidocaine 1% In Ns 8.4%) 0.25 ml IV ONETIME PRN PRN Reason: Prior to IV Start Last Admin: 12/06/16 06:29 Dose: 0.25 ml Magnesium Hydroxide (Milk Of Magnesia) 30 ml PO BID PRN PRN Reason: Constipation Meperidine HCl (Demerol) 12.5 mg IVPUSH ONETIME COUNT INCLUDES THE [facility] Stop: 12/06/16 18:00 Last Admin: 12/06/16 09:40 Dose: 12.5 mg Metoclopramide HCl (Reglan) 10 mg IVPUSH ONETIME PRN PRN Reason: Nausea/Vomiting Metoprolol Succinate (Toprol Xl) 50 mg PO DAILY COUNT INCLUDES [facility] Metoprolol Succinate (Toprol Xl) 50 mg PO DAILY COUNT INCLUDES [facility] Last Admin: 12/07/16 09:09 Dose: 50 mg Midazolam HCl (Versed 1 Mg/Ml) Confirm Administered Dose 2 mg .ROUTE .[facility] ONE Stop: 12/06/16 06:26 Morphine Sulfate (Morphine) 2 mg IVPUSH Q2H PRN PRN Reason: Breakthrough Pain Morphine Sulfate (Duramorph Pf) Confirm Administered Dose 10 mg .ROUTE .[facility] ONE Stop: 12/06/16 06:55 Multivitamins (Thera) 1 each PO WITHBREAKFAST COUNT INCLUDES THE [facility] Last Admin: 12/07/16 06:59 Dose: 1 each Naloxone HCl (Narcan) 0.1 mg IVPUSH Q5M PRN PRN Reason: Oversedation Stop: 12/06/16 06:50 Ondansetron HCl (Zofran) 4 mg IVPUSH Q6H PRN PRN Reason: Nausea/Vomiting Ondansetron HCl (Zofran) 4 mg IVPUSH ONETIME PRN PRN Reason: Nausea/Vomiting Oxycodone/Acetaminophen (Percocet 325-5 Mg) 1 - 2 tab PO Q4H PRN PRN Reason: Pain Last Admin: 12/07/16 14:51 Dose: 2 tab Phenylephrine HCl (Phenylephrine In Ns 100 Mcg/Ml) Confirm Administered Dose 1 mg .ROUTE .STK-MED ONE Stop: 12/06/16 07:36 Propofol (Diprivan 20 Ml) Confirm Administered Dose 200 mg .ROUTE .STK-MED ONE Stop: 12/06/16 06:26 Propofol (Diprivan 20 Ml) Confirm Administered Dose 200 mg .ROUTE .STK-MED ONE Stop: 12/06/16 06:57 Propofol (Diprivan 20 Ml) Confirm Administered Dose 200 mg .ROUTE .STK-MED ONE Stop: 12/06/16 07:43 Propofol (Diprivan 20 Ml) Confirm Administered Dose 200 mg .ROUTE .STK-MED ONE Stop: 12/06/16 08:25 Senna (Senna) 8.6 mg PO BID PRN PRN Reason: Constipation Sodium Chloride (Saline Flush) 10 ml FLUSH ASDIRECTED PRN PRN Reason: Keep Vein Open Temazepam (Restoril) 15 mg PO BEDTIME PRN PRN Reason: Insomnia Tranexamic Acid (Cyklokapron) Confirm Administered Dose 1,000 mg .ROUTE .STK- MED ONE Stop: 12/06/16 06:10 Last Admin: 12/06/16 08:29 Dose: 1,000 mg Triamcinolone Acetonide (Kenalog-40) Confirm Administered Dose 80 mg .ROUTE .STK -MED ONE Stop: 12/06/16 06:10 Last Admin: 12/06/16 08:50 Dose: 80 mg Zolpidem Tartrate (Ambien) 2.5 mg PO BEDTIME PRN PRN Reason: Insomnia - Exam Wound/Incisions: dressing dry and intact General: alert, cooperative, no acute distress Lungs: Normal respiratory effort Extremities: normal pulses, no calf tenderness, other (NVS intact for BLE. Carley's negative.) - Problem List Review Problem List Initiated/Reviewed/Updated: Yes - My Orders Last 24 Hours: Active Orders 24 hr Category Date Time Status Communication Order [RC] ROUTINE Care 12/06/16 21:20 Active Insert Rosario Catheter [Insert Urinary Catheter] [OM.PC] Care 12/07/16 13:00 Ordered Q24H Ready for Discharge [RC] PER UNIT ROUTINE Care 12/07/16 13:44 Active Pulse Oximetry Continuous Monitoring [OM.PC] Routine Oth 12/06/16 21:16 Active - Assessment Assessment (Free Text/Narrative):: POD#1 - right TKA - Plan Plan (Free Text/Narrative):: 1. Hgb 12.5. 2. ASA BID, TEDs, frequent mobility. 3. Outpatient P.T. 4. Discharge to home today. The pt has met inpatient therapy goals and has been cleared by Hospitalist service. The pt's case was discussed with Dr. Mera.
--- NOTE | 2016-12-08 11:38 | PCM.DCSUM1 ---
Discharge Summary - Hospital Course Brief History: Philipp is a 61 yo female who underwent right TKA and left knee cortisone injection with Dr. Mera on 12-06-16. The procedure was completed under spinal anesthesia with MAC. The pt tolerated the procedure well and was admitted to the Medical-Surgical Unit. Medical management was provided by the Hospitalist service. The pt's Hospital course was uneventful. The pt's Hgb on POD#1 was 12.5. On POD#1, 325mg ASA BID was initiated for VTE prophylaxis. A Mepilex dressing was placed at the incision site at the time of surgery and remained clean and dry. The pt participated in P.T. and O.T. and progressed well. The pt was allowed to WBAT. On POD#1, the pt was deemed appropriate to discharge to home. - Discharge Data Discharge Date: 12/07/16 Discharge Disposition: Home, Self-Care 01 Condition: Good - Patient Summary/Data Operative Procedure(s) Performed: right total knee arthroplasty with left knee corticosteroid injection Consults: Consultations 12/06/16 06:34 Consult to Case Management [CONS] Routine Consult to Physician [CONS] Routine OT Evaluation and Treatment [CONS] Routine 12/06/16 06:37 PT Evaluation and Treatment [CONS] Routine - Patient Instructions Diet: Usual Diet as Tolerated Activity: Apply Ice, As Tolerated, Elevate Extremity, Full Weight Bearing Driving: Do Not Drive Showering/Bathing: May Shower Wound/Incision Care: Keep Operative Site/Wound Site Clean and Dry, Do NOT Change Dressing Notify Provider of: Fever, Increased Pain, Swelling and Redness, Drainage, Nausea and/or Vomiting Other/Special Instructions: Please get up and moving around every hour while awake. This helps to prevent blood clots. Please take 325mg aspirin twice daily - this also helps to prevent blood clots. The medication is being used for blood clot prevention and not for pain control, so please use the medication TWICE daily as directed. Please wear the PHILIP hose during the day and remove them at night. Please schedule for P.T. Complete the P.T. exercises and stretches that were instructed in the Hospital. Please use the pain medication and muscle relaxant as needed. The medication may cause drowsiness and/or constipation. You could use a stool softener like docusate sodium or Colace 100mg twice daily and/or a laxative like polyethylene glycol or Miralax daily for constipation. Contact your primary care provider for further instructions if you are constipated. Please schedule an appointment with your primary care provider for 'routine post-op care'. Use the incentive spirometer often. Please place ice to the knee often. Please elevate the limb to decrease swelling. Keep the Mepilex dressing in place until follow-up. Please call [phone] with questions or concerns. - Discharge Plan Prescriptions/Med Rec: Acetaminophen/oxyCODONE [Percocet 325-5 MG] 1 - 2 tab PO Q4H PRN #60 tablet PRN Reason: Pain Aspirin [Ecotrin] 325 mg PO BID #84 tab.ec Cyclobenzaprine [Flexeril] 10 mg PO TID PRN #40 tablet PRN Reason: Spasms Home Medications: Home Meds Furosemide [Lasix] 40 mg PO DAILY PRN 12/05/16 [History] Metoprolol Succinate 50 mg PO DAILY 12/05/16 [History] Zolpidem Tartrate [Ambien] 2.5 mg PO BEDTIME PRN 12/05/16 [History] amLODIPine Besylate [Amlodipine Besylate] 5 mg PO DAILY 12/05/16 [History] Acetaminophen/oxyCODONE [Percocet 325-5 MG] 1 - 2 tab PO Q4H PRN #60 tablet 09/24 [Rx] Aspirin [Ecotrin] 325 mg PO BID #84 tab.ec 12/07/16 [Rx] Bisacodyl [Dulcolax] 5 mg PO DAILY PRN #0 tablet 12/07/16 [Rx] Cyclobenzaprine [Flexeril] 10 mg PO TID PRN #40 tablet 12/07/16 [Rx] Docusate Sodium [Colace] 100 mg PO BID cap 12/07/16 [Rx] Famotidine [Pepcid] 20 mg PO Q12H tablet 12/07/16 [Rx] Multivitamins,Therapeutic [Thera] 1 each PO WITHBREAKFAST tablet 12/07/16 [Rx] Sennosides [Senna] 8.6 mg PO BID PRN #0 tablet 12/07/16 [Rx] Patient Handouts: Total Knee Replacement, Care After, [id number], Total Knee Replacement, [id number], Aspirin, ASA oral tablets, Knee Rehabilitation Guidelines Following Surgery Referrals: Tani Warren MD [Primary Care Provider] - 12/23/16 11:00 am Lisa Hastings PA-C [Physician Medical Device Assembler] - 12/14/16 1:45 pm - Patient Data Vitals - Most Recent: Last Vital Signs Temp 97.2 F 12/07/16 11:46 Pulse 62 12/07/16 11:46 Resp 14 12/07/16 11:46 BP 117/83 12/07/16 11:46 Pulse Ox 96 12/07/16 11:46 Weight - Most Recent: 245 lb I&O - Last 24 hours: Intake & Output 12/07/16 12/08/16 12/08/16 22:59 06:59 14:59 Intake Total 800 Output Total 2000 Balance -1200 Med Orders - Current: Current Medications Discontinued Medications Amlodipine Besylate (Norvasc) 5 mg PO DAILY [facility] Amlodipine Besylate (Norvasc) 5 mg PO DAILY [facility] Last Admin: 12/07/16 09:09 Dose: 5 mg Aspirin (Ecotrin) 325 mg PO BID [facility] Last Admin: 12/07/16 09:09 Dose: 325 mg Bisacodyl (Dulcolax) 5 mg PO DAILY PRN PRN Reason: Constipation Bupivacaine HCl (Sensorcaine-Mpf 0.25%) Confirm Administered Dose 10 ml .ROUTE .STK-MED ONE Stop: 12/06/16 06:10 Last Admin: 12/06/16 08:50 Dose: 4 ml Bupivacaine HCl (Marcaine 0.25%) Confirm Administered Dose 30 ml .ROUTE .STK- MED ONE Stop: 12/06/16 06:10 Last Admin: 12/06/16 08:23 Dose: 30 ml Cefazolin Sodium (Ancef) Confirm Administered Dose 2 gm .ROUTE .STK-MED ONE Stop: 12/06/16 06:10 Last Admin: 12/06/16 08:18 Dose: 2 gm Morphine Sulfate 8 mg/Epinephrine HCl 0.3 mg/Cefuroxime Sodium 750 mg/Ketorolac Tromethamine 30 mg/Sodium Chloride 27.9 ml 0 mg .XX ONETIME ONE Stop: 12/06/16 07:46 Last Admin: 12/06/16 11:23 Dose: Not Given Cyclobenzaprine HCl (Flexeril) 10 mg PO TID PRN PRN Reason: Spasms Last Admin: 12/07/16 05:18 Dose: 10 mg Diphenhydramine HCl (Benadryl) 25 mg IVPUSH Q6H PRN PRN Reason: itching Last Admin: 12/06/16 19:11 Dose: 25 mg Docusate Sodium (Colace) 100 mg PO BID [facility] Last Admin: 12/07/16 09:09 Dose: 100 mg Ephedrine Sulfate (Ephedrine In Ns) Confirm Administered Dose 25 mg .ROUTE .STK- MED ONE Stop: 12/06/16 08:20 Famotidine (Pepcid) 20 mg PO Q12H [facility] Last Admin: 12/07/16 06:59 Dose: 20 mg Fentanyl (Sublimaze) Confirm Administered Dose 100 mcg .ROUTE .STK-MED ONE Stop: 12/06/16 06:26 Fentanyl (Sublimaze) 50 mcg IVPUSH Q5M PRN PRN Reason: pain Furosemide (Lasix) 40 mg PO DAILY PRN PRN Reason: swelling Hydromorphone HCl (Dilaudid) 0.5 mg IVPUSH Q15M PRN PRN Reason: Pain (severe 7-10) Stop: 12/06/16 06:59 Lactated Ringer's (Ringers, Lactated) 1,000 mls @ 125 mls/hr IV ASDIRECTED [facility] Last Admin: 12/06/16 06:30 Dose: 125 mls/hr Cefazolin Sodium/Dextrose 2 gm (/ Premix) 50 mls @ 100 mls/hr IV Q8H [facility] Stop: 12/06/16 22:59 Last Admin: 12/06/16 15:14 Dose: Not Given Lactated Ringer's (Ringers, Lactated) Confirm Administered Dose 1,000 mls @ as directed .ROUTE .STK-MED ONE Stop: 12/06/16 08:54 Lactated Ringer's (Ringers, Lactated) Confirm Administered Dose 1,000 mls @ as directed .ROUTE .STK-MED ONE Stop: 12/06/16 08:54 Cefazolin Sodium/Dextrose 2 gm (/ Premix) 50 mls @ 100 mls/hr IV Q8H [facility] Stop: 12/07/16 06:59 Last Admin: 12/07/16 06:59 Dose: 100 mls/hr Iodine (Iodine 2% Mild Tincture) Confirm Administered Dose 30 ml .ROUTE .STK- MED ONE Stop: 12/06/16 06:10 Last Admin: 12/06/16 08:14 Dose: 18 ml Lidocaine/Sodium Bicarbonate (Buffered Lidocaine 1% In Ns 8.4%) 0.25 ml IV ONETIME PRN PRN Reason: Prior to IV Start Last Admin: 12/06/16 06:29 Dose: 0.25 ml Magnesium Hydroxide (Milk Of Magnesia) 30 ml PO BID PRN PRN Reason: Constipation Meperidine HCl (Demerol) 12.5 mg IVPUSH ONETIME [facility] Stop: 12/06/16 18:00 Last Admin: 12/06/16 09:40 Dose: 12.5 mg Metoclopramide HCl (Reglan) 10 mg IVPUSH ONETIME PRN PRN Reason: Nausea/Vomiting Metoprolol Succinate (Toprol Xl) 50 mg PO DAILY [facility] Metoprolol Succinate (Toprol Xl) 50 mg PO DAILY [facility] Last Admin: 12/07/16 09:09 Dose: 50 mg Midazolam HCl (Versed 1 Mg/Ml) Confirm Administered Dose 2 mg .ROUTE .STK-MED ONE Stop: 12/06/16 06:26 Morphine Sulfate (Morphine) 2 mg IVPUSH Q2H PRN PRN Reason: Breakthrough Pain Morphine Sulfate (Duramorph Pf) Confirm Administered Dose 10 mg .ROUTE .STK-MED ONE Stop: 12/06/16 06:55 Multivitamins (Thera) 1 each PO WITHBREAKFAST [facility] Last Admin: 12/07/16 06:59 Dose: 1 each Naloxone HCl (Narcan) 0.1 mg IVPUSH Q5M PRN PRN Reason: Oversedation Stop: 12/06/16 06:50 Ondansetron HCl (Zofran) 4 mg IVPUSH Q6H PRN PRN Reason: Nausea/Vomiting Ondansetron HCl (Zofran) 4 mg IVPUSH ONETIME PRN PRN Reason: Nausea/Vomiting Oxycodone/Acetaminophen (Percocet 325-5 Mg) 1 - 2 tab PO Q4H PRN PRN Reason: Pain Last Admin: 12/07/16 14:51 Dose: 2 tab Phenylephrine HCl (Phenylephrine In Ns 100 Mcg/Ml) Confirm Administered Dose 1 mg .ROUTE .STK-MED ONE Stop: 12/06/16 07:36 Propofol (Diprivan 20 Ml) Confirm Administered Dose 200 mg .ROUTE .STK-MED ONE Stop: 12/06/16 06:26 Propofol (Diprivan 20 Ml) Confirm Administered Dose 200 mg .ROUTE .STK-MED ONE Stop: 12/06/16 06:57 Propofol (Diprivan 20 Ml) Confirm Administered Dose 200 mg .ROUTE .STK-MED ONE Stop: 12/06/16 07:43 Propofol (Diprivan 20 Ml) Confirm Administered Dose 200 mg .ROUTE .STK-MED ONE Stop: 12/06/16 08:25 Senna (Senna) 8.6 mg PO BID PRN PRN Reason: Constipation Sodium Chloride (Saline Flush) 10 ml FLUSH ASDIRECTED PRN PRN Reason: Keep Vein Open Temazepam (Restoril) 15 mg PO BEDTIME PRN PRN Reason: Insomnia Tranexamic Acid (Cyklokapron) Confirm Administered Dose 1,000 mg .ROUTE .STK- MED ONE Stop: 12/06/16 06:10 Last Admin: 12/06/16 08:29 Dose: 1,000 mg Triamcinolone Acetonide (Kenalog-40) Confirm Administered Dose 80 mg .ROUTE .STK -MED ONE Stop: 12/06/16 06:10 Last Admin: 12/06/16 08:50 Dose: 80 mg Zolpidem Tartrate (Ambien) 2.5 mg PO BEDTIME PRN PRN Reason: Insomnia *Q Meaningful Use (DIS) - VTE *Q VTE Criteria *Q: - Stroke *Q Stroke Criteria *Q: - AMI *Q AMI Criteria *Q:
== END 2016-12-07 15:50 | disposition home or self-care (01) | DRG 470 ==
LOC: JD.MS 06:08
PROVIDERS: ADMIT Orthopaedic Surgery; ATTEND Orthopaedic Surgery
PROC: 0SRC0J9 Replacement of Right Knee Joint with Synthetic Substitute, Cemented, Open Approach (ICD-10-PCS; principal; 2016-12-06)
PROC: 3E0U33Z Introduction of Anti-inflammatory into Joints, Percutaneous Approach (ICD-10-PCS; 2016-12-06)
PROC: 3E0U3BZ Introduction of Anesthetic Agent into Joints, Percutaneous Approach (ICD-10-PCS; 2016-12-06)
DX: M17.0 Bilateral primary osteoarthritis of knee (principal); Z68.41 Body mass index [BMI] 40.0-44.9, adult; I10 Essential (primary) hypertension; G25.0 Essential tremor; E03.9 Hypothyroidism, unspecified; F32.9 Major depressive disorder, single episode, unspecified; F41.9 Anxiety disorder, unspecified; E55.9 Vitamin D deficiency, unspecified; E66.01 Morbid (severe) obesity due to excess calories; Z88.2 Allergy status to sulfonamides; Z88.8 Allergy status to other drugs, medicaments and biological substances; Z79.899 Other long term (current) drug therapy; Z87.891 Personal history of nicotine dependence; R06.02 Shortness of breath
CPT/HCPCS: 01402; 36415; 73560-26-RT; 73560-RT; 80053; 85025; 94762; 97110-GP; 97116-GP; 97161-GP; 97165-GO; 97530-GO; 97530-GP; 97535-GO; A9270-GY; C1713; C1776; J0171; J0690; J0697; J1200; J1885; J2175; J2250; J2270; J2704; J3010; J3301; J3490; J7050; J7120

== ENCOUNTER 2017-04-18 11:04 | Inpatient (IN) | payer MEDICAID ==
[2017-04-25] MEDS ORDERED: Lactated Ringers 1,000 ML IV SCH (06:55)
[2017-04-25] MEDS ORDERED: Sodium Chloride 0.9% 10 ML Syringe FLUSH PRN (06:55)
[2017-04-25] MEDS ORDERED: Lidocaine 1%/Sod Bicarbonate in NS 8.4% 1 ML Syringe PRN (06:55)
--- NOTE | 2017-04-25 11:18 | PCM.PREANE ---
Preanesthetic Assessment - Procedure Proposed Procedure: left knee replacement - Anesthesia/Transfusion/Family Hx Anesthesia History: Prior Anesthesia Without Reaction Family History of Anesthesia Reaction: No Transfusion History: No Prior Transfusion(s) Intubation History: Unknown - Review of Systems General: No Symptoms Pulmonary: No Symptoms (Sleep apnea), Cough Cardiovascular: No Symptoms (HTN) Gastrointestinal: No Symptoms Neurological: No Symptoms Other: Reports: Easy Bruising, Thyroid Problems (Hypothyroid), Depression, Anxiety - Physical Assessment NPO Status Date: 04/24/17 NPO Status Time: 22:30 Pulse: 84 O2 Sat by Pulse Oximetry: 93 Respiratory Rate: 18 Blood Pressure: 138/84 Vital Signs: Last Vital Signs Temp 36.7 C 04/25/17 10:10 Pulse Resp 18 04/25/17 10:10 BP 138/84 04/25/17 10:10 Pulse Ox 93 L 04/25/17 10:10 Height: 1.65 m Weight: 106.685 kg ASA Class: 2 Mental Status: Alert & Oriented x3 Airway Class: Mallampati = 3 Dentition: Reports: Dentures (Upper dentures) Thyro-Mental Finger Breadths: 2 Mouth Opening Finger Breadths: 3 ROM/Head Extension: Full Lungs: Clear to Auscultation, Normal Respiratory Effort Cardiovascular: Regular Rate, Regular Rhythm - Lab Values: Laboratory Last Values MRSA (PCR) Negative 04/01/17 14:33 Reviewed. - Allergies Allergies/Adverse Reactions: Allergies Allergy/AdvReac Type Severity Reaction Status Date / Time Sulfa (Sulfonamide Allergy hives, Verified 04/22/17 13:48 Antibiotics) itching, respiratory distress YUKO Inhibitors AdvReac Cough Verified 04/22/17 13:48 - Anesthesia Plan Beta Mona: Metoprolol Med Last Dose Date: 04/25/17 Med Last Dose Time: 22:00 - Acknowledgements Anesthesia Type Planned: Spinal Pt an Appropriate Candidate for the Planned Anesthesia: Yes Alternatives and Risks of Anesthesia Discussed w Pt/Guardian: Yes Pt/Guardian Understands and Agrees with Anesthesia Plan: Yes PreAnesthesia Questionnaire HEENT History: Reports: Other (See Below) Other HEENT History: upper denture Cardiovascular History: Reports: Hypertension, Other (See Below) Other Cardiovascular History: PACs Respiratory History: Reports: SOB, Other (See Below) Other Respiratory History: chronic cough 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 Musculoskeletal History: Reports: Osteoarthritis Neurological History: Reports: None Other Neuro History: Tremors Psychiatric History: Reports: Anxiety, Depression, Other (See Below) Other Psychiatric History: fatigue Endocrine/Metabolic History: Reports: Hypothyroidism, Vitamin D Deficiency Hematologic History: Reports: None Immunologic History: Reports: None Oncologic (Cancer) History: Reports: None Dermatologic History: Reports: Other (See Below) Other Dermatologic History: fatty 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 - Infectious Disease History Infectious Disease History: Reports: Chicken Pox, Measles, Mumps - Past Surgical History Head Surgeries/Procedures: Reports: None HEENT Surgical History: Reports: Tonsillectomy Cardiovascular Surgical History: Reports: Other (See Below) Other Cardiovascular Surgeries/Procedures: heart surgery at age 4, "valve wouldnt close all the way" Respiratory Surgical History: Reports: None GI Surgical History: Reports: Appendectomy Female Surgical History: Reports: Hysterectomy Male Surgical History: Reports: None Endocrine Surgical History: Reports: None Neurological Surgical History: Reports: None Musculoskeletal Surgical History: Reports: Knee Replacement - SUBSTANCE USE Smoking Status *Q: Former Smoker Second Hand Smoke Exposure: No Days Per Week of Alcohol Use: 5 Number of Drinks Per Day: 2 Total Drinks Per Week: 10 Recreational Drug Use History: No - HOME MEDS Home Medications: Home Meds Furosemide [Lasix] 40 mg PO DAILY PRN 12/05/16 [History] Metoprolol Succinate 75 mg PO DAILY 12/05/16 [History] Zolpidem Tartrate [Ambien] 2.5 mg PO BEDTIME PRN 12/05/16 [History] amLODIPine [Norvasc] 5 mg PO DAILY 04/22/17 [History] - CURRENT (IN HOUSE) MEDS Current Meds: Current Medications Lactated Ringer's (Ringers, Lactated) 1,000 mls @ 125 mls/hr IV ASDIRECTED [facility] Stop: 04/25/17 23:00 Last Admin: 04/25/17 10:30 Dose: 125 mls/hr Lidocaine/Sodium Bicarbonate (Buffered Lidocaine 1% In Ns 8.4%) 0.25 ml .XX ONETIME PRN PRN Reason: Prior to IV Start Stop: 04/25/17 18:00 Last Admin: 04/25/17 10:29 Dose: 0.25 ml Sodium Chloride (Saline Flush) 10 ml FLUSH ASDIRECTED PRN PRN Reason: Keep Vein Open Stop: 04/25/17 18:00
[2017-04-25] MEDS ORDERED: ceFAZolin 1 GM Vial ONE (11:25)
[2017-04-25] MEDS ORDERED: Triamcinolone Acetonide 40 MG/ML 1 ML MDV ONE (11:25)
[2017-04-25] MEDS ORDERED: Ondansetron 4 MG/2 ML SDV ONE (11:40)
[2017-04-25] MEDS ORDERED: Lidocaine 1% 4 ML ONE (11:40)
[2017-04-25] MEDS ORDERED: Lactated Ringers 1,000 ML ONE ×2 (11:40→14:45)
[2017-04-25] MEDS ORDERED: fentaNYL 100 MCG/2 ML SDV ONE (11:41)
[2017-04-25] MEDS ORDERED: Propofol 200 MG/20 ML SDV ONE ×6 (11:41→14:07)
[2017-04-25] MEDS ORDERED: Midazolam 1 MG/ML 2 ML SDV ONE (11:41)
[2017-04-25] MEDS ORDERED: Morphine PF 10 MG/10 ML SDV ONE (11:42)
[2017-04-25] MEDS ORDERED: Bupivacaine 0.25% 10 ML SDV ONE (12:11)
[2017-04-25] MEDS ORDERED: Phenylephrine 1% 10 MG/ML SDV ONE (12:53)
[2017-04-25] MEDS: Iodine/Sodium Iodide 2% Tincture 30 ML Bottle ONE ×2 (13:22→13:50)
[2017-04-25] MEDS: Bupivacaine 0.25% 30 ML SDV ONE ×2 (13:23→13:58)
[2017-04-25] MEDS: Morphine 8 MG, EPINEPHrine 0.3 MG, Cefuroxime 750 MG, Ketorolac 30 MG, Sodium Chloride ... ONE ×10 (13:23→13:57)
[2017-04-25] MEDS: ceFAZolin 1 GM Vial ONE ×2 (13:23→13:53)
[2017-04-25] MEDS: Vancomycin 1 GM SDV ONE ×2 (13:24→13:58)
[2017-04-25] MEDS ORDERED: Naloxone 0.4 MG/ML SDV IVPUSH PRN (14:04)
[2017-04-25] MEDS ORDERED: Docusate Sodium 100 MG Cap PO PRN (14:04)
[2017-04-25] MEDS ORDERED: Ondansetron 4 MG/2 ML SDV IVPUSH PRN ×2 (14:04→14:46)
[2017-04-25] MEDS ORDERED: Bisacodyl 5 MG Tab PO PRN (14:04)
[2017-04-25] MEDS ORDERED: Magnesium Hydroxide 400 MG/5 ML Susp 30 ML Cup PO PRN (14:04)
[2017-04-25] MEDS ORDERED: Ketorolac 15 MG/ML SDV IVPUSH PRN (14:04)
[2017-04-25] MEDS ORDERED: Morphine 2 MG/ML Syringe IVPUSH PRN (14:04)
[2017-04-25] MEDS ORDERED: Sennosides 8.6 MG Tab PO PRN (14:04)
--- NOTE | 2017-04-25 14:45 | PCM.POSTAN ---
POST ANESTHESIA ASSESSMENT - MENTAL STATUS Mental Status: Alert, Oriented - VITAL SIGNS Pulse Rate: 65 SaO2: 93 Resp Rate: 16 Blood Pressure: 99/63 Temperature: 36.2 C - RESPIRATORY Respiratory Status: Respiratory Rate WNL, Airway Patent, O2 Saturation Stable - CARDIOVASCULAR CV Status: Pulse Rate WNL, Blood Pressure Stable - GASTROINTESTINAL GI Status: No Symptoms - POST OP HYDRATION Hydration Status: Adequate & Stable
[2017-04-25] MEDS ORDERED: fentaNYL 100 MCG/2 ML SDV IVPUSH PRN (14:46)
[2017-04-25] MEDS ORDERED: diphenhydrAMINE 50 MG/ML SDV IVPUSH PRN ×2 (15:01→15:14)
[2017-04-25] MEDS: diphenhydrAMINE 50 MG/ML SDV IVPUSH ONE ×2 (15:02→15:20)
[2017-04-25] MEDS ORDERED: diphenhydrAMINE 50 MG/ML SDV ONE (15:10)
--- NOTE | 2017-04-25 15:18 | CR ---
Left knee: Two views of the left knee were obtained. Comparison: No previous left knee study. Knee prosthesis is noted. Soft tissue air is noted from the surgical procedure. Underlying bony structures are intact. Impression: 1. Knee prosthesis which has been recently placed. No acute abnormality is identified. Diagnostic code #2
--- NOTE | 2017-04-25 15:20 | PCM.CONS ---
H&P History of Present Illness - General Date of Service: 04/25/17 Admit Problem/Dx: Admission Diagnosis/Problem Admission Diagnosis/Problem Arthritis of knee Source of Information: Patient, Old Records, Provider, RN Notes Reviewed History Limitations: Reports: Physical Impairment - History of Present Illness Initial Comments - Free Text/Narative: This is a [id number], white female, with past medical history of HTN, OA, Chronic SOB, Essential Tremors, Hypothyroidism, Vitamin D Deficiency, Anxiety, Depression and Obesity with BMI of 39 who underwent left total knee arthroplasty and bilateral ankle steroid injection post operative day zero. Patient is doing relatively well. Currently, her pain is controlled. She denies any acute issues. Hospital Medicine was consulted for postoperative care. - Related Data Allergies/Adverse Reactions: Allergies Allergy/AdvReac Type Severity Reaction Status Date / Time Sulfa (Sulfonamide Allergy hives, Verified 04/25/17 11:18 Antibiotics) itching, respiratory distress YUKO Inhibitors AdvReac Cough Verified 04/25/17 11:18 Home Medications: Home Meds Furosemide [Lasix] 40 mg PO DAILY PRN 12/05/16 [History] Metoprolol Succinate 75 mg PO DAILY 12/05/16 [History] Zolpidem Tartrate [Ambien] 5 mg PO BEDTIME PRN 12/05/16 [History] amLODIPine [Norvasc] 10 mg PO DAILY 04/22/17 [History] Ascorbic Acid [Vitamin C] 1 tab PO DAILY 04/25/17 [History] Cholecalciferol (Vitamin D3) [Vitamin D] 1 tab PO DAILY 04/25/17 [History] Cyanocobalamin (Vitamin B-12) [Vitamin B-12] 1 tab PO DAILY 04/25/17 [History] Zinc 1 tab PO DAILY 04/25/17 [History] Past Medical History HEENT History: Reports: Other (See Below) Other HEENT History: upper denture Cardiovascular History: Reports: Hypertension, Other (See Below) Other Cardiovascular History: PACs Respiratory History: Reports: SOB, Other (See Below) Other Respiratory History: chronic cough 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 Musculoskeletal History: Reports: Osteoarthritis Neurological History: Reports: None Other Neuro History: Tremors Psychiatric History: Reports: Anxiety, Depression, Other (See Below) Other Psychiatric History: fatigue Endocrine/Metabolic History: Reports: Hypothyroidism, Vitamin D Deficiency Hematologic History: Reports: None Immunologic History: Reports: None Oncologic (Cancer) History: Reports: None Dermatologic History: Reports: Other (See Below) Other Dermatologic History: fatty 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 - Infectious Disease History Infectious Disease History: Reports: Chicken Pox, Measles, Mumps - Past Surgical History Head Surgeries/Procedures: Reports: None HEENT Surgical History: Reports: Tonsillectomy Cardiovascular Surgical History: Reports: Other (See Below) Other Cardiovascular Surgeries/Procedures: heart surgery at age 4, "valve wouldnt close all the way" Respiratory Surgical History: Reports: None GI Surgical History: Reports: Appendectomy Female Surgical History: Reports: Hysterectomy Male Surgical History: Reports: None Endocrine Surgical History: Reports: None Neurological Surgical History: Reports: None Musculoskeletal Surgical History: Reports: Knee Replacement Social & Family History - Family History Neurological: Reports: Other (See Below) Other Neurological Family History: Tremors - Tobacco Use Smoking Status *Q: Former Smoker Years of Tobacco use: 20 Packs/Tins Daily: 2 Used Tobacco, but Quit: Yes Month Tobacco Last Used: 1999 Second Hand Smoke Exposure: No - Caffeine Use Caffeine Use: Reports: None - Alcohol Use Days Per Week of Alcohol Use: 5 Number of Drinks Per Day: 2 Total Drinks Per Week: 10 - Recreational Drug Use Recreational Drug Use: No H&P Review of Systems - Review of Systems: Review Of Systems: See Below General: Denies: Fever, Chills, Malaise, Weakness, Fatigue HEENT: Reports: No Symptoms Pulmonary: Denies: Shortness of Breath Cardiovascular: Denies: Chest Pain, Palpitations, Dyspnea on Exertion, Lightheadedness Gastrointestinal: Denies: Abdominal Pain, Nausea, Vomiting Genitourinary: Reports: No Symptoms Musculoskeletal: Reports: No Symptoms Skin: Denies: Cyanosis, Pallor Psychiatric: Denies: Confusion, Depression, Mood Lability, Anxiety, Hallucinations Neurological: Reports: Difficulty Walking, Weakness, Gait Disturbance. Denies: Confusion Hematologic/Lymphatic: Reports: No Symptoms Immunologic: Reports: No Symptoms Exam - Exam Exam: See Below - Vital Signs Vital Signs: Last Vital Signs Temp 36.2 C 04/25/17 14:45 Pulse 61 04/25/17 15:05 Resp 19 04/25/17 15:05 BP 101/64 04/25/17 15:05 Pulse Ox 93 L 09/18/17 15:05 Weight: 106.685 kg - Exam General: Alert, Oriented, Cooperative, Other (Obese). No: Mild Distress HEENT: Conjunctiva Clear, EACs Clear, EOMI, Hearing Intact, Nares Patent, Normal Nasal Septum, Posterior Pharynx Clear, Pupils Equal, Pupils Reactive Neck: Supple, Trachea Midline, +2 Carotid Pulse wo Bruit, Full Range of Motion Lungs: Normal Respiratory Effort, Decreased Breath Sounds Cardiovascular: Regular Rate, Regular Rhythm GI/Abdominal Exam: Normal Bowel Sounds, Soft, Non-Tender, No Organomegaly, No Distention, No Abnormal Bruit, No Mass (Female) Exam: Other (indwelling miller catheter) Rectal (Female) Exam: Deferred Back Exam: Normal Inspection, Decreased Range of Motion Extremities: Normal Inspection, Normal Range of Motion, Non-Tender, No Pedal Edema, Normal Capillary Refill Peripheral Pulses: 2+: Posterior Tibial (L), Posterior Tibial (R), Dorsalis Pedis (L), Dorsalis Pedis (R) Skin: Warm, Dry, Intact Neuro Extensive - Mental Status: Oriented x3, Normal Cognition, Memory Intact Neuro Extensive - Motor, Sensory, Reflexes: CN II-XII Intact (limited but grossly intact), Abnormal Gait Psychiatric: Alert, Normal Affect, Normal Mood Consult PN Assessment/Plan POD#: 0 Procedures: Procedures GAIT TRAINING THERAPY (01/04/17) MANUAL THERAPY 1/> REGIONS (01/04/17) MASSAGE THERAPY (01/04/17) MEDICAL NUTRITION INDIV IN (01/21/17) PT EVAL LOW COMPLEX 20 MIN (01/04/17) THERAPEUTIC EXERCISES (01/26/17) Problem List Initiated/Reviewed/Updated: Yes Plan: Assessment: Acute: Post-Operative Care State - Stable - Continue to monitor for hemodynamic instability S/p Left Total Knee Arthroplasty With Bilateral Ankle Cortisone Injection - Stable - DVT and Pain Management as per primary team Hx/o Chronic Knee Pain - Pain Management as per primary team Chronic: HTN OA Chronic SOB Essential Tremors Hypothyroidism Vitamin D Deficiency Anxiety Depression Obesity with BMI of 39 Plan: She is clinically stable Routine AM labs Continue home meds PT/OT consult IS q2 awake Thank you for the opportunity to participate in the management of this patient. Requesting Provider: Dr. Mera Date Consult Requested: 04/25/17 Reason for Consult: Post-Operative Care Patient History Reviewed: Yes Admission H&P Reviewed: Yes Consult Result/Summary: Stable
[2017-04-25] MEDS ORDERED: Nalbuphine 20 MG/1 ML Amp IVPUSH ONE (15:46)
[2017-04-25] MEDS ORDERED: hydrALAZINE 20 MG/ML SDV IVPUSH PRN (18:06)
[2017-04-25] MEDS ORDERED: Metoprolol Tartrate 5 MG/5 ML SDV IVPUSH PRN (18:06)
[2017-04-25] MEDS ORDERED: LORazepam 2 MG/ML MDV IVPUSH PRN (18:06)
[2017-04-25] MEDS ORDERED: Hydrocortisone 1% Crm 30 GM Tube TOP PRN (18:09)
[2017-04-25] MEDS ORDERED: Furosemide 40 MG Tab PO PRN (18:10)
[2017-04-25] MEDS ORDERED: Zolpidem 5 MG Tab PO PRN ×2 (18:10→19:25)
[2017-04-25] MEDS: ceFAZolin 2 GM in Premix Bag 1 BAG IV SCH (18:44)
[2017-04-25] MEDS: Aspirin 325 MG Tab.EC PO SCH (21:23)
[2017-04-25] MEDS: Acetaminophen/oxyCODONE 325-5 MG Tab PO PRN (21:23)
[2017-04-26] MEDS: Acetaminophen/oxyCODONE 325-5 MG Tab PO PRN ×2 (03:49→10:10)
[2017-04-26] MEDS: ceFAZolin 2 GM in Premix Bag 1 BAG IV SCH ×2 (03:49→13:47)
[2017-04-26] MEDS: Aspirin 325 MG Tab.EC PO SCH (08:38)
[2017-04-26] MEDS ORDERED: Cholecalciferol (Vitamin D3) 1,000 Unit Tab PO SCH (09:00)
[2017-04-26] MEDS ORDERED: Cyanocobalamin (Vitamin B12) 1,000 MCG Tab PO SCH (09:00)
[2017-04-26] MEDS ORDERED: Famotidine 20 MG Tab PO SCH (09:00)
[2017-04-26] MEDS ORDERED: Metoprolol Succinate 50 MG Tab.ER PO SCH (09:00)
[2017-04-26] MEDS ORDERED: amLODIPine 5 MG Tab PO SCH (09:00)
[2017-04-26] MEDS ORDERED: amLODIPine 10 MG Tab PO SCH (09:00)
--- NOTE | 2017-04-26 09:15 | PCM48HPAN ---
Post Anesthesia Note - EVALUATION WITHIN 48HRS OF ANESTHETIC Vital Signs in Normal Range: Yes Patient Participated in Evaluation: Yes Respiratory Function Stable: Yes Airway Patent: Yes Cardiovascular Function Stable: Yes Hydration Status Stable: Yes Pain Control Satisfactory: Yes Nausea and Vomiting Control Satisfactory: Yes Mental Status Recovered: Yes - COMMENTS/OBSERVATIONS Free Text/Narrative:: Philipp is up and ambulating this morning. Denies headache, back pain, or numbness and tingling in her lower extremities. Experienced severe itching last night which is much improved this morning.
--- NOTE | 2017-04-26 10:20 | PCM.CONSN ---
- General Info Date of Service: 04/26/17 Admission Dx/Problem (Free Text): Admission Diagnosis/Problem Admission Diagnosis/Problem Arthritis of knee Functional Status: Reports: Tolerating Diet, Ambulating, Urinating, Incentive Spirometry. Denies: New Symptoms Pain Score: 9 - Review of Systems General: Reports: No Symptoms HEENT: Reports: No Symptoms Pulmonary: Reports: No Symptoms Cardiovascular: Reports: No Symptoms Gastrointestinal: Reports: No Symptoms Genitourinary: Reports: No Symptoms Musculoskeletal: Reports: Leg Pain (04/17 at knee after PT/OT assement with walking, etc.). Denies: Neck Pain, Shoulder Pain, Arm Pain, Hand Pain, Back Pain, Foot Pain, Joint Pain, Joint Swelling Skin: Reports: No Symptoms Neurological: Reports: Difficulty Walking, Weakness, Gait Disturbance. Denies: Confusion, Dizziness, Headache, Numbness, Trouble Speaking Psychiatric: Reports: No Symptoms Systems Review Comment:: Patient reports she is doing very well. She reports having had right knee arthroplasty prior and recovered well. She denies any concerns with discharge. - Patient Data Vitals - Most Recent: Last Vital Signs Temp 98.4 F 04/26/17 07:29 Pulse 67 04/26/17 08:39 Resp 14 04/26/17 07:29 BP 131/70 04/26/17 08:39 Pulse Ox 92 L 04/26/17 07:29 Weight - Most Recent: 243 lb 2 oz I&O - Last 24 Hours: Intake & Output 04/25/17 04/26/17 04/26/17 22:59 06:59 14:59 Intake Total 830 1700 Output Total 50 2000 Balance 780 -300 Lab Results Last 24 Hours: Laboratory Results - last 24 hr 04/26/17 04/26/17 Range/Units 06:13 06:13 WBC 11.59 H (3.98-10.04) K/mm3 RBC 4.08 (3.98-5.22) M/mm3 Hgb 12.3 (11.2-15.7) gm/L Hct 37.7 (34.1-44.9) % MCV 92.4 (79.4-94.8) fl MCH 30.1 (25.6-32.2) pg MCHC 32.6 (32.2-35.5) g/dl RDW Std Deviation 46.7 H (36.4-46.3) fL Plt Count 316 (182-369) K/mm3 MPV 9.5 (9.4-12.3) fl Neut % (Auto) 80.1 H (34.0-71.1) % Lymph % (Auto) 10.4 L (19.3-51.7) % [place] % (Auto) 9.1 (4.7-12.5) % Eos % (Auto) 0.1 L (0.7-5.8) Baso % (Auto) 0.1 (0.1-1.2) % Neut # (Auto) 9.29 H (1.56-6.13) K/mm3 Lymph # (Auto) 1.20 (1.18-3.74) K/mm3 [place] # (Auto) 1.06 H (0.24-0.36) K/mm3 Eos # (Auto) 0.01 L (0.04-0.36) K/mm3 Baso # (Auto) 0.01 (0.01-0.08) K/mm3 Sodium 137 (136-145) mEq/L Potassium 4.3 (3.5-5.1) mEq/L Chloride 103 (98-107) mEq/L Carbon Dioxide 24 (21-32) mEq/L Anion Gap 14.3 (5-15) BUN 11 (7-18) mg/dL Creatinine 0.8 (0.55-1.02) mg/dL Est Cr Clr Drug Dosing 64.77 mL/min Estimated GFR (MDRD) > 60 (>60) mL/min BUN/Creatinine Ratio 13.8 L (14-18) Glucose 123 H (80-115) mg/dL Calcium 9.0 (8.5-10.1) mg/dL Total Bilirubin 0.3 (0.2-1.0) mg/dL AST 19 (15-37) U/L ALT 34 (14-59) U/L Alkaline Phosphatase 83 (46-116) U/L Total Protein 6.8 (6.4-8.2) g/dl Albumin 2.9 L (3.4-5.0) g/dl Globulin 3.9 gm/dL Albumin/Globulin Ratio 0.7 L (1-2) Med Orders - Current: Current Medications Amlodipine Besylate (Norvasc) 10 mg PO DAILY [facility] Last Admin: 04/26/17 08:39 Dose: 10 mg Aspirin (Ecotrin) 325 mg PO BID REPLACED BY [facility] Last Admin: 04/26/17 08:38 Dose: 325 mg Bisacodyl (Dulcolax) 10 mg PO DAILY PRN PRN Reason: Constipation Cholecalciferol (Vitamin D3) 5,000 units PO DAILY REPLACED BY [facility] Last Admin: 04/26/17 08:40 Dose: 5,000 units Cyanocobalamin (Vitamin B12) 1,000 mcg PO DAILY REPLACED BY [facility] Last Admin: 04/26/17 08:46 Dose: 1,000 mcg Docusate Sodium (Colace) 100 mg PO BID PRN PRN Reason: Constipation Famotidine (Pepcid) 20 mg PO Q12H REPLACED BY [facility] Last Admin: 04/26/17 08:39 Dose: 20 mg Furosemide (Lasix) 40 mg PO DAILY PRN PRN Reason: swelling Hydralazine HCl (Apresoline) 20 mg IVPUSH Q4H PRN PRN Reason: Hypertension Hydrocortisone (Hydrocortisone 1% Crm) 30 gm TOP Q4H PRN PRN Reason: Itching Last Admin: 04/25/17 18:44 Dose: 1 applic Cefazolin Sodium/Dextrose 2 gm (/ Premix) 50 mls @ 50 mls/hr IV Q8H REPLACED BY [facility] Stop: 04/26/17 12:29 Last Admin: 04/26/17 03:49 Dose: 50 mls/hr Ketorolac Tromethamine (Toradol) 15 mg IVPUSH Q8H PRN PRN Reason: Pain Last Admin: 04/25/17 21:24 Dose: 15 mg Lorazepam (Ativan) 2 mg IVPUSH Q4H PRN PRN Reason: Seizures Magnesium Hydroxide (Milk Of Magnesia) 30 ml PO BID PRN PRN Reason: Constipation Magnesium Sulfate (Pharmacy To Dose - Magnesium Replacement) 0 dose .XX ASDIRECTED PRN PRN Reason: RX TO WATCH MAG LEVELS Metoprolol Succinate (Toprol Xl) 75 mg PO DAILY REPLACED BY [facility] Last Admin: 04/26/17 08:39 Dose: 75 mg Metoprolol Tartrate (Lopressor) 5 mg IVPUSH Q4H PRN PRN Reason: Tachycardia Morphine Sulfate (Morphine) 2 mg IVPUSH Q2H PRN PRN Reason: Breakthrough Pain Naloxone HCl (Narcan) 0.1 mg IVPUSH Q5M PRN PRN Reason: Oversedation Ondansetron HCl (Zofran) 4 mg IVPUSH Q6H PRN PRN Reason: Nausea/Vomiting Oxycodone/Acetaminophen (Percocet 325-5 Mg) 2 tab PO Q4H PRN PRN Reason: Pain Last Admin: 04/26/17 10:10 Dose: 2 tab Potassium Chloride (Pharmacy To Dose - Potassium Replacement) 0 dose .XX ASDIRECTED PRN PRN Reason: RX TO WATCH K LEVELS Senna (Senna) 8.6 mg PO BID PRN PRN Reason: Constipation Zolpidem Tartrate (Ambien) 5 mg PO BEDTIME PRN PRN Reason: Sleep Last Admin: 04/25/17 23:05 Dose: 5 mg Discontinued Medications Amlodipine Besylate (Norvasc) 5 mg PO DAILY [facility] Bupivacaine HCl (Marcaine 0.25%) Confirm Administered Dose 30 ml .ROUTE .STK- MED ONE Stop: 04/25/17 11:27 Last Admin: 04/25/17 13:58 Dose: 30 ml Bupivacaine HCl (Sensorcaine-Mpf 0.25%) Confirm Administered Dose 10 ml .ROUTE .STK-MED ONE Stop: 04/25/17 12:12 Last Admin: 04/25/17 14:28 Dose: 4 ml Cefazolin Sodium (Ancef) Confirm Administered Dose 2 gm .ROUTE .STK-MED ONE Stop: 04/25/17 11:38 Last Admin: 04/25/17 13:53 Dose: 2 gm Cefazolin Sodium (Ancef) Confirm Administered Dose 2 gm .ROUTE .STK-MED ONE Stop: 04/25/17 11:26 Morphine Sulfate 8 mg/Epinephrine HCl 0.3 mg/Cefuroxime Sodium 750 mg/Ketorolac Tromethamine 30 mg/Sodium Chloride 17.9 ml 0 mg .XX ONETIME ONE Stop: 04/25/17 13:01 Last Admin: 04/25/17 13:57 Dose: 788.3 mg Diphenhydramine HCl (Benadryl) 25 mg IVPUSH Q6H PRN PRN Reason: pruritis Stop: 04/25/17 23:00 Diphenhydramine HCl (Benadryl) 25 mg IVPUSH Q6H PRN PRN Reason: itching Stop: 04/25/17 23:59 Diphenhydramine HCl (Benadryl) 25 mg IVPUSH ONETIME ONE Stop: 04/25/17 15:18 Last Admin: 04/25/17 15:20 Dose: 25 mg Diphenhydramine HCl (Benadryl) Confirm Administered Dose 50 mg .ROUTE .STK-MED ONE Stop: 04/25/17 15:11 Last Admin: 04/25/17 17:41 Dose: Not Given Fentanyl (Sublimaze) Confirm Administered Dose 100 mcg .ROUTE .STK-MED ONE Stop: 04/25/17 11:42 Fentanyl (Sublimaze) 50 mcg IVPUSH Q5M PRN PRN Reason: Pain Stop: 04/25/17 14:47 Lactated Ringer's (Ringers, Lactated) 1,000 mls @ 125 mls/hr IV ASDIRECTED [facility] Stop: 04/25/17 23:00 Last Admin: 04/25/17 10:30 Dose: 125 mls/hr Lidocaine HCl (Xylocaine-Mpf 1%) Confirm Administered Dose 4 mls @ as directed .ROUTE .STK-MED ONE Stop: 04/25/17 11:41 Lactated Ringer's (Ringers, Lactated) Confirm Administered Dose 1,000 mls @ as directed .ROUTE .STK-MED ONE Stop: 04/25/17 11:41 Lactated Ringer's (Ringers, Lactated) Confirm Administered Dose 1,000 mls @ as directed .ROUTE .STK-MED ONE Stop: 04/25/17 14:46 Iodine (Iodine 2% Mild Tincture) Confirm Administered Dose 30 ml .ROUTE .STK- MED ONE Stop: 04/25/17 11:27 Last Admin: 04/25/17 13:50 Dose: 18 ml Lidocaine/Sodium Bicarbonate (Buffered Lidocaine 1% In Ns 8.4%) 0.25 ml .XX ONETIME PRN PRN Reason: Prior to IV Start Stop: 04/25/17 18:00 Last Admin: 04/25/17 10:29 Dose: 0.25 ml Midazolam HCl (Versed 1 Mg/Ml) Confirm Administered Dose 2 mg .ROUTE .STK-MED ONE Stop: 04/25/17 11:42 Morphine Sulfate (Duramorph Pf) Confirm Administered Dose 10 mg .ROUTE .STK-MED ONE Stop: 04/25/17 11:43 Nalbuphine HCl (Nubain) 2 mg IVPUSH ONETIME ONE Stop: 04/25/17 15:47 Last Admin: 04/25/17 16:04 Dose: 2 mg Ondansetron HCl (Zofran) Confirm Administered Dose 4 mg .ROUTE .STK-MED ONE Stop: 04/25/17 11:41 Ondansetron HCl (Zofran) 4 mg IVPUSH ONETIME PRN PRN Reason: Nausea/Vomiting Stop: 04/25/17 18:00 Phenylephrine HCl (Ashwin-Synephrine) Confirm Administered Dose 10 mg .ROUTE .STK- MED ONE Stop: 04/25/17 12:54 Propofol (Diprivan 20 Ml) Confirm Administered Dose 200 mg .ROUTE .STK-MED ONE Stop: 04/25/17 11:42 Propofol (Diprivan 20 Ml) Confirm Administered Dose 200 mg .ROUTE .STK-MED ONE Stop: 04/25/17 11:42 Propofol (Diprivan 20 Ml) Confirm Administered Dose 200 mg .ROUTE .STK-MED ONE Stop: 04/25/17 11:43 Propofol (Diprivan 20 Ml) Confirm Administered Dose 200 mg .ROUTE .STK-MED ONE Stop: 04/25/17 13:25 Propofol (Diprivan 20 Ml) Confirm Administered Dose 200 mg .ROUTE .STK-MED ONE Stop: 04/25/17 13:26 Propofol (Diprivan 20 Ml) Confirm Administered Dose 200 mg .ROUTE .STK-MED ONE Stop: 04/25/17 14:08 Sodium Chloride (Saline Flush) 10 ml FLUSH ASDIRECTED PRN PRN Reason: Keep Vein Open Stop: 04/25/17 18:00 Tranexamic Acid (Cyklokapron) Confirm Administered Dose 1,000 mg .ROUTE .STK- MED ONE Stop: 04/25/17 11:27 Last Admin: 04/25/17 14:01 Dose: 1,000 mg Triamcinolone Acetonide (Kenalog-40) Confirm Administered Dose 80 mg .ROUTE .STK -MED ONE Stop: 04/25/17 11:26 Last Admin: 04/25/17 14:28 Dose: 80 mg Vancomycin HCl (Vancomycin) Confirm Administered Dose 1 gm .ROUTE .STK-MED ONE Stop: 04/25/17 11:27 Last Admin: 04/25/17 13:58 Dose: 1 gm Zolpidem Tartrate (Ambien) 2.5 mg PO BEDTIME PRN PRN Reason: Insomnia - Exam Quality Assessment: DVT Prophylaxis General: Alert, Oriented, Cooperative HEENT: Pupils Equal, Pupils Reactive, Mucous Membr. Moist/[place] Neck: Supple, Trachea Midline, No JVD Lungs: Clear to Auscultation, Decreased Breath Sounds Cardiovascular: Regular Rate, Regular Rhythm GI/Abdominal Exam: Normal Bowel Sounds, Soft, Non-Tender, No Distention (Female) Exam: Deferred Back Exam: Normal Inspection, Full Range of Motion Extremities: No Pedal Edema, Normal Capillary Refill, Leg Pain (9/10 pain over left knee ), Limited Range of Motion, Other (L knee bandaged. ) Peripheral Pulses: 2+: Radial (L), Radial (R), Dorsalis Pedis (L), Dorsalis Pedis (R) Skin: Warm, Dry, Intact Wound/Incisions: Dressing Dry and Intact, No Drainage Neurological: No New Focal Deficit Psy/Mental Status: Alert, Normal Affect, Normal Mood Physical Findings Comments:: She is complaining of 9/10 left knee pain. I alerted nursing to this as she was just walked and showered with PT/OT. Nursing reports they will address this with primary care team. Consult PN Assessment/Plan POD#: 1 Procedures: Procedures GAIT TRAINING THERAPY (01/04/17) MANUAL THERAPY 1/> REGIONS (01/04/17) MASSAGE THERAPY (01/04/17) MEDICAL NUTRITION INDIV IN (01/21/17) PT EVAL LOW COMPLEX 20 MIN (01/04/17) THERAPEUTIC EXERCISES (01/26/17) (1) Anxiety and depression SNOMED Code(s): 635778862 Code(s): F41.9 - ANXIETY DISORDER, UNSPECIFIED; F32.9 - MAJOR DEPRESSIVE DISORDER, SINGLE EPISODE, UNSPECIFIED Priority: Medium Current Visit: No (2) Essential tremor SNOMED Code(s): 122819870 Code(s): G25.0 - ESSENTIAL TREMOR Priority: Medium Current Visit: Yes (3) HTN (hypertension) SNOMED Code(s): 57120569 Code(s): I10 - ESSENTIAL (PRIMARY) HYPERTENSION Priority: Medium Current Visit: Yes Qualifiers: Hypertension type: essential hypertension Qualified Code(s): I10 - Essential (primary) hypertension (4) Obesity SNOMED Code(s): 904834600 Code(s): E66.9 - OBESITY, UNSPECIFIED Priority: Medium Current Visit: Yes Qualifiers: Obesity type: unspecified obesity type (5) Osteoarthritis SNOMED Code(s): 377515561 Code(s): M19.90 - UNSPECIFIED OSTEOARTHRITIS, UNSPECIFIED SITE Priority: High Current Visit: Yes Qualifiers: Osteoarthritis location: knee Osteoarthritis type: primary Laterality: right Qualified Code(s): M17.11 - Unilateral primary osteoarthritis, right knee (6) S/P total knee arthroplasty SNOMED Code(s): 9517132334018, 358521809, 0771602054132 Code(s): Z96.659 - PRESENCE OF UNSPECIFIED ARTIFICIAL KNEE JOINT Priority: High Current Visit: Yes Qualifiers: Laterality: right Qualified Code(s): Z96.651 - Presence of right artificial knee joint (7) Hypothyroid SNOMED Code(s): 17019791 Code(s): E03.9 - HYPOTHYROIDISM, UNSPECIFIED Priority: Medium Current Visit: No Qualifiers: Hypothyroidism type: unspecified Qualified Code(s): E03.9 - Hypothyroidism , unspecified (8) Hypovitaminosis D SNOMED Code(s): 68968983 Code(s): E55.9 - VITAMIN D DEFICIENCY, UNSPECIFIED Priority: Medium Current Visit: No Problem List Initiated/Reviewed/Updated: Yes Plan: Assessment: Acute: Post-Operative Care State - Stable - Continue to monitor for hemodynamic instability - Hgb 12.3 - Plt 316 S/p Left Total Knee Arthroplasty With Bilateral Ankle Cortisone Injection - Stable - DVT and Pain Management as per primary team Hx/o Chronic Knee Pain - Pain Management as per primary team Chronic: HTN OA Chronic SOB Essential Tremors Hypothyroidism Vitamin D Deficiency Anxiety Depression Obesity with BMI of 39 Plan: She is clinically stable Routine AM labs Continue home meds PT/OT consult IS q2 awake Thank you for the opportunity to participate in the management of this patient. Requesting Provider: Dr. Mera Date Consult Requested: 04/25/17 Reason for Consult: Post-Operative Care Patient History Reviewed: Yes Admission H&P Reviewed: Yes Consult Result/Summary: Stable She is clinically stable for discharge today from a hospitalist standpoint.
[2017-04-26] MEDS ORDERED: Lidocaine 1%/Sod Bicarbonate in NS 8.4% 1 ML Syringe SUBCUT ONE (13:11)
[2017-04-26 13:25] VITALS: BP 130/76
--- NOTE | 2017-04-28 15:13 | PCM.SURGPN ---
- General Info Date of Service: 04/26/17 POD#: 1 Functional Status: Reports: Pain Controlled, Tolerating Diet, Ambulating, Urinating, Incentive Spirometry. Denies: New Symptoms - Review of Systems Musculoskeletal: Reports: Other (The pt feels prepared for discharge. She has met inpatient therapy goals.) - Patient Data Vitals - Most Recent: Last Vital Signs Temp 98.1 F 04/26/17 11:54 Pulse 66 04/26/17 11:54 Resp 20 04/26/17 13:00 BP 130/76 04/26/17 11:54 Pulse Ox 97 04/26/17 11:54 Weight - Most Recent: 243 lb 2 oz Med Orders - Current: Current Medications Discontinued Medications Amlodipine Besylate (Norvasc) 5 mg PO DAILY [facility] Amlodipine Besylate (Norvasc) 10 mg PO DAILY [facility] Last Admin: 04/26/17 08:39 Dose: 10 mg Aspirin (Ecotrin) 325 mg PO BID [facility] Last Admin: 04/26/17 08:38 Dose: 325 mg Bisacodyl (Dulcolax) 10 mg PO DAILY PRN PRN Reason: Constipation Bupivacaine HCl (Marcaine 0.25%) Confirm Administered Dose 30 ml .ROUTE .STK- MED ONE Stop: 04/25/17 11:27 Last Admin: 04/25/17 13:58 Dose: 30 ml Bupivacaine HCl (Sensorcaine-Mpf 0.25%) Confirm Administered Dose 10 ml .ROUTE .STK-MED ONE Stop: 04/25/17 12:12 Last Admin: 04/25/17 14:28 Dose: 4 ml Cefazolin Sodium (Ancef) Confirm Administered Dose 2 gm .ROUTE .STK-MED ONE Stop: 04/25/17 11:38 Last Admin: 04/25/17 13:53 Dose: 2 gm Cefazolin Sodium (Ancef) Confirm Administered Dose 2 gm .ROUTE .STK-MED ONE Stop: 04/25/17 11:26 Cholecalciferol (Vitamin D3) 5,000 units PO DAILY [facility] Last Admin: 04/26/17 08:40 Dose: 5,000 units Morphine Sulfate 8 mg/Epinephrine HCl 0.3 mg/Cefuroxime Sodium 750 mg/Ketorolac Tromethamine 30 mg/Sodium Chloride 17.9 ml 0 mg .XX ONETIME ONE Stop: 04/25/17 13:01 Last Admin: 04/25/17 13:57 Dose: 788.3 mg Cyanocobalamin (Vitamin B12) 1,000 mcg PO DAILY [facility] Last Admin: 04/26/17 08:46 Dose: 1,000 mcg Diphenhydramine HCl (Benadryl) 25 mg IVPUSH Q6H PRN PRN Reason: pruritis Stop: 04/25/17 23:00 Diphenhydramine HCl (Benadryl) 25 mg IVPUSH Q6H PRN PRN Reason: itching Stop: 04/25/17 23:59 Diphenhydramine HCl (Benadryl) 25 mg IVPUSH ONETIME ONE Stop: 04/25/17 15:18 Last Admin: 04/25/17 15:20 Dose: 25 mg Diphenhydramine HCl (Benadryl) Confirm Administered Dose 50 mg .ROUTE .STK-MED ONE Stop: 04/25/17 15:11 Last Admin: 04/25/17 17:41 Dose: Not Given Docusate Sodium (Colace) 100 mg PO BID PRN PRN Reason: Constipation Famotidine (Pepcid) 20 mg PO Q12H [facility] Last Admin: 04/26/17 08:39 Dose: 20 mg Fentanyl (Sublimaze) Confirm Administered Dose 100 mcg .ROUTE .STK-MED ONE Stop: 04/25/17 11:42 Fentanyl (Sublimaze) 50 mcg IVPUSH Q5M PRN PRN Reason: Pain Stop: 04/25/17 14:47 Furosemide (Lasix) 40 mg PO DAILY PRN PRN Reason: swelling Hydralazine HCl (Apresoline) 20 mg IVPUSH Q4H PRN PRN Reason: Hypertension Hydrocortisone (Hydrocortisone 1% Crm) 30 gm TOP Q4H PRN PRN Reason: Itching Last Admin: 04/25/17 18:44 Dose: 1 applic Lactated Ringer's (Ringers, Lactated) 1,000 mls @ 125 mls/hr IV ASDIRECTED [facility] Stop: 04/25/17 23:00 Last Admin: 04/25/17 10:30 Dose: 125 mls/hr Lidocaine HCl (Xylocaine-Mpf 1%) Confirm Administered Dose 4 mls @ as directed .ROUTE .STK-MED ONE Stop: 04/25/17 11:41 Lactated Ringer's (Ringers, Lactated) Confirm Administered Dose 1,000 mls @ as directed .ROUTE .STK-MED ONE Stop: 04/25/17 11:41 Cefazolin Sodium/Dextrose 2 gm (/ Premix) 50 mls @ 50 mls/hr IV Q8H [facility] Stop: 04/26/17 12:29 Last Admin: 04/26/17 13:47 Dose: Not Given Lactated Ringer's (Ringers, Lactated) Confirm Administered Dose 1,000 mls @ as directed .ROUTE .STK-MED ONE Stop: 04/25/17 14:46 Iodine (Iodine 2% Mild Tincture) Confirm Administered Dose 30 ml .ROUTE .STK- MED ONE Stop: 04/25/17 11:27 Last Admin: 04/25/17 13:50 Dose: 18 ml Ketorolac Tromethamine (Toradol) 15 mg IVPUSH Q8H PRN PRN Reason: Pain Last Admin: 04/25/17 21:24 Dose: 15 mg Lidocaine/Sodium Bicarbonate (Buffered Lidocaine 1% In Ns 8.4%) 0.25 ml .XX ONETIME PRN PRN Reason: Prior to IV Start Stop: 04/25/17 18:00 Last Admin: 04/25/17 10:29 Dose: 0.25 ml Lidocaine/Sodium Bicarbonate (Buffered Lidocaine 1% In Ns 8.4%) 0.25 ml SUBCUT ONETIME ONE Stop: 04/26/17 13:12 Last Admin: 04/26/17 14:27 Dose: Not Given Lorazepam (Ativan) 2 mg IVPUSH Q4H PRN PRN Reason: Seizures Magnesium Hydroxide (Milk Of Magnesia) 30 ml PO BID PRN PRN Reason: Constipation Magnesium Sulfate (Pharmacy To Dose - Magnesium Replacement) 0 dose .XX ASDIRECTED PRN PRN Reason: RX TO WATCH MAG LEVELS Metoprolol Succinate (Toprol Xl) 75 mg PO DAILY [facility] Last Admin: 04/26/17 08:39 Dose: 75 mg Metoprolol Tartrate (Lopressor) 5 mg IVPUSH Q4H PRN PRN Reason: Tachycardia Midazolam HCl (Versed 1 Mg/Ml) Confirm Administered Dose 2 mg .ROUTE .STK-MED ONE Stop: 04/25/17 11:42 Morphine Sulfate (Duramorph Pf) Confirm Administered Dose 10 mg .ROUTE .STK-MED ONE Stop: 04/25/17 11:43 Morphine Sulfate (Morphine) 2 mg IVPUSH Q2H PRN PRN Reason: Breakthrough Pain Nalbuphine HCl (Nubain) 2 mg IVPUSH ONETIME ONE Stop: 04/25/17 15:47 Last Admin: 04/25/17 16:04 Dose: 2 mg Naloxone HCl (Narcan) 0.1 mg IVPUSH Q5M PRN PRN Reason: Oversedation Ondansetron HCl (Zofran) Confirm Administered Dose 4 mg .ROUTE .STK-MED ONE Stop: 04/25/17 11:41 Ondansetron HCl (Zofran) 4 mg IVPUSH Q6H PRN PRN Reason: Nausea/Vomiting Ondansetron HCl (Zofran) 4 mg IVPUSH ONETIME PRN PRN Reason: Nausea/Vomiting Stop: 04/25/17 18:00 Oxycodone/Acetaminophen (Percocet 325-5 Mg) 2 tab PO Q4H PRN PRN Reason: Pain Last Admin: 04/26/17 10:10 Dose: 2 tab Phenylephrine HCl (Ashwin-Synephrine) Confirm Administered Dose 10 mg .ROUTE .STK- MED ONE Stop: 04/25/17 12:54 Potassium Chloride (Pharmacy To Dose - Potassium Replacement) 0 dose .XX ASDIRECTED PRN PRN Reason: RX TO WATCH K LEVELS Propofol (Diprivan 20 Ml) Confirm Administered Dose 200 mg .ROUTE .STK-MED ONE Stop: 04/25/17 11:42 Propofol (Diprivan 20 Ml) Confirm Administered Dose 200 mg .ROUTE .STK-MED ONE Stop: 04/25/17 11:42 Propofol (Diprivan 20 Ml) Confirm Administered Dose 200 mg .ROUTE .STK-MED ONE Stop: 04/25/17 11:43 Propofol (Diprivan 20 Ml) Confirm Administered Dose 200 mg .ROUTE .STK-MED ONE Stop: 04/25/17 13:25 Propofol (Diprivan 20 Ml) Confirm Administered Dose 200 mg .ROUTE .STK-MED ONE Stop: 04/25/17 13:26 Propofol (Diprivan 20 Ml) Confirm Administered Dose 200 mg .ROUTE .STK-MED ONE Stop: 04/25/17 14:08 Senna (Senna) 8.6 mg PO BID PRN PRN Reason: Constipation Sodium Chloride (Saline Flush) 10 ml FLUSH ASDIRECTED PRN PRN Reason: Keep Vein Open Stop: 04/25/17 18:00 Tranexamic Acid (Cyklokapron) Confirm Administered Dose 1,000 mg .ROUTE .STK- MED ONE Stop: 04/25/17 11:27 Last Admin: 04/25/17 14:01 Dose: 1,000 mg Triamcinolone Acetonide (Kenalog-40) Confirm Administered Dose 80 mg .ROUTE .STK -MED ONE Stop: 04/25/17 11:26 Last Admin: 04/25/17 14:28 Dose: 80 mg Vancomycin HCl (Vancomycin) Confirm Administered Dose 1 gm .ROUTE .STK-MED ONE Stop: 04/25/17 11:27 Last Admin: 04/25/17 13:58 Dose: 1 gm Zolpidem Tartrate (Ambien) 2.5 mg PO BEDTIME PRN PRN Reason: Insomnia Zolpidem Tartrate (Ambien) 5 mg PO BEDTIME PRN PRN Reason: Sleep Last Admin: 04/25/17 23:05 Dose: 5 mg - Exam Wound/Incisions: Dressing Dry and Intact General: Alert, Cooperative, No Acute Distress Lungs: Normal Respiratory Effort Extremities: Other (NVS intact for LLE. Carley's negative.) - Problem List Review Problem List Initiated/Reviewed/Updated: Yes - Assessment Assessment (Free Text/Narrative):: POD#1 - left TKA and bilat ankle injections - Plan Plan (Free Text/Narrative):: 1. Discharge to home today. 2. 325mg ASA BID, TEDs, frequent mobility. 3. Percocet for pain management. 4. Outpatient P.T. 5. Hgb 12.[address] Mera evaluated the pt today.
--- NOTE | 2017-04-28 15:16 | PCM.DCSUM1 ---
Discharge Summary - Hospital Course Brief History: Philipp is a 61 yo female who underwent left TKA with bilateral ankle injections with Dr. Mera on 04-25-2017. The procedure was completed under spinal anesthesia. The pt tolerated the procedure well and was admitted to the Medical-Surgical Unit. Medical management was provided by the Hospitalist service. The pt's Hospital course was uneventful. The pt's Hgb on POD#1 was 12.3. On POD#1, 325mg BID was initiated for VTE prophylaxis. SCDs and TEDs were also ordered. A Mepilex dressing was placed at the incision site at the time of surgery and remained clean and dry. The pt participated in P.T. and O.T. and progressed well. The pt was allowed to WBAT and used a FWW for mobility. On POD#1, the pt was deemed appropriate to discharge to home. - Discharge Data Discharge Date: 04/26/17 Discharge Disposition: Home, Self-Care 01 Condition: Good - Patient Summary/Data Consults: Consultations 04/25/17 14:04 Consult to Physician [CONS] Routine 04/25/17 14:30 Consult to Case Management [CONS] Routine OT Evaluation and Treatment [CONS] Routine 04/25/17 14:31 PT Evaluation and Treatment [CONS] Routine - Patient Instructions Diet: Usual Diet as Tolerated Activity: Apply Ice, As Tolerated, Elevate Extremity, Full Weight Bearing Driving: Do Not Drive Showering/Bathing: May Shower Wound/Incision Care: Keep Operative Site/Wound Site Clean and Dry, Do NOT Change Dressing Notify Provider of: Fever, Increased Pain, Swelling and Redness, Drainage, Nausea and/or Vomiting Other/Special Instructions: Please get up and moving around every hour while awake. This helps to prevent blood clots. Please use your walker and have help as needed. Take a 325mg ASPIRIN TWICE DAILY. This also helps to prevent blood clots. The aspirin is being used for blood clot prevention and not for pain management, so please do not miss a dose of the medication. Do the exercises you were taught in the Hospital. Schedule for P.T. Use the pain medication as needed. The medication may cause drowsiness and constipation. Contact your primary care provider for instructions if you are constipated. You may use a stool softener like docusate sodium or Colace 100mg twice daily and/or a laxative like Miralax daily for constipation. Use the ice machine often. Elevate the limb to decrease swelling. Keep the Mepilex dressing in place until follow-up at the Clinic. Notify the Clinic if the dressing is saturated. Wear the PHILIP hose during the day and you may remove these at night. Eat a diet high in protein as this well help with healing. Schedule an appointment with your primary care provider for 'routine post-op care'. Call the Clinic with questions or concerns - [phone]. - Discharge Plan Prescriptions/Med Rec: oxyCODONE HCl/Acetaminophen [Percocet 5-325 mg Tablet] 1 - 2 each PO Q6HR PRN # 80 tablet PRN Reason: Pain Aspirin [Ecotrin] 325 mg PO BID #84 tab.ec Home Medications: Home Meds Furosemide [Lasix] 40 mg PO DAILY PRN 12/05/16 [History] Metoprolol Succinate 75 mg PO DAILY 12/05/16 [History] Zolpidem Tartrate [Ambien] 5 mg PO BEDTIME PRN 12/05/16 [History] amLODIPine [Norvasc] 10 mg PO DAILY 04/22/17 [History] Ascorbic Acid [Vitamin C] 1 tab PO DAILY 04/25/17 [History] Cholecalciferol (Vitamin D3) [Vitamin D] 1 tab PO DAILY 04/25/17 [History] Cyanocobalamin (Vitamin B-12) [Vitamin B-12] 1 tab PO DAILY 04/25/17 [History] Zinc 1 tab PO DAILY 04/25/17 [History] Aspirin [Ecotrin] 325 mg PO BID #84 tab.ec 04/26/17 [Rx] oxyCODONE HCl/Acetaminophen [Percocet 5-325 mg Tablet] 1 - 2 each PO Q6HR PRN # 80 tablet 04/26/17 [Rx] Patient Handouts: Total Knee Replacement, Care After, [id number], Total Knee Replacement, [id number] Referrals: Lisa Hastings PA-C [Physician Percher] - (1. Follow-up with on 05/03/17 at 1:30pm. Please check in at 1:15pm. 2. Follow-up with Lisa Hastings PA-C on 05/10/17 at 11:45am. Please check in at 11:30am.) - Patient Data Vitals - Most Recent: Last Vital Signs Temp 98.1 F 04/26/17 11:54 Pulse 66 04/26/17 11:54 Resp 20 04/26/17 13:00 BP 130/76 04/26/17 11:54 Pulse Ox 97 04/26/17 11:54 Weight - Most Recent: 243 lb 2 oz Med Orders - Current: Current Medications Discontinued Medications Amlodipine Besylate (Norvasc) 5 mg PO DAILY [facility] Amlodipine Besylate (Norvasc) 10 mg PO DAILY [facility] Last Admin: 04/26/17 08:39 Dose: 10 mg Aspirin (Ecotrin) 325 mg PO BID [facility] Last Admin: 04/26/17 08:38 Dose: 325 mg Bisacodyl (Dulcolax) 10 mg PO DAILY PRN PRN Reason: Constipation Bupivacaine HCl (Marcaine 0.25%) Confirm Administered Dose 30 ml .ROUTE .STK- MED ONE Stop: 04/25/17 11:27 Last Admin: 04/25/17 13:58 Dose: 30 ml Bupivacaine HCl (Sensorcaine-Mpf 0.25%) Confirm Administered Dose 10 ml .ROUTE .STK-MED ONE Stop: 04/25/17 12:12 Last Admin: 04/25/17 14:28 Dose: 4 ml Cefazolin Sodium (Ancef) Confirm Administered Dose 2 gm .ROUTE .STK-MED ONE Stop: 04/25/17 11:38 Last Admin: 04/25/17 13:53 Dose: 2 gm Cefazolin Sodium (Ancef) Confirm Administered Dose 2 gm .ROUTE .STK-MED ONE Stop: 04/25/17 11:26 Cholecalciferol (Vitamin D3) 5,000 units PO DAILY [facility] Last Admin: 04/26/17 08:40 Dose: 5,000 units Morphine Sulfate 8 mg/Epinephrine HCl 0.3 mg/Cefuroxime Sodium 750 mg/Ketorolac Tromethamine 30 mg/Sodium Chloride 17.9 ml 0 mg .XX ONETIME ONE Stop: 04/25/17 13:01 Last Admin: 04/25/17 13:57 Dose: 788.3 mg Cyanocobalamin (Vitamin B12) 1,000 mcg PO DAILY [facility] Last Admin: 04/26/17 08:46 Dose: 1,000 mcg Diphenhydramine HCl (Benadryl) 25 mg IVPUSH Q6H PRN PRN Reason: pruritis Stop: 04/25/17 23:00 Diphenhydramine HCl (Benadryl) 25 mg IVPUSH Q6H PRN PRN Reason: itching Stop: 04/25/17 23:59 Diphenhydramine HCl (Benadryl) 25 mg IVPUSH ONETIME ONE Stop: 04/25/17 15:18 Last Admin: 04/25/17 15:20 Dose: 25 mg Diphenhydramine HCl (Benadryl) Confirm Administered Dose 50 mg .ROUTE .STK-MED ONE Stop: 04/25/17 15:11 Last Admin: 04/25/17 17:41 Dose: Not Given Docusate Sodium (Colace) 100 mg PO BID PRN PRN Reason: Constipation Famotidine (Pepcid) 20 mg PO Q12H [facility] Last Admin: 04/26/17 08:39 Dose: 20 mg Fentanyl (Sublimaze) Confirm Administered Dose 100 mcg .ROUTE .STK-MED ONE Stop: 04/25/17 11:42 Fentanyl (Sublimaze) 50 mcg IVPUSH Q5M PRN PRN Reason: Pain Stop: 04/25/17 14:47 Furosemide (Lasix) 40 mg PO DAILY PRN PRN Reason: swelling Hydralazine HCl (Apresoline) 20 mg IVPUSH Q4H PRN PRN Reason: Hypertension Hydrocortisone (Hydrocortisone 1% Crm) 30 gm TOP Q4H PRN PRN Reason: Itching Last Admin: 04/25/17 18:44 Dose: 1 applic Lactated Ringer's (Ringers, Lactated) 1,000 mls @ 125 mls/hr IV ASDIRECTED [facility] Stop: 04/25/17 23:00 Last Admin: 04/25/17 10:30 Dose: 125 mls/hr Lidocaine HCl (Xylocaine-Mpf 1%) Confirm Administered Dose 4 mls @ as directed .ROUTE .STK-MED ONE Stop: 04/25/17 11:41 Lactated Ringer's (Ringers, Lactated) Confirm Administered Dose 1,000 mls @ as directed .ROUTE .STK-MED ONE Stop: 04/25/17 11:41 Cefazolin Sodium/Dextrose 2 gm (/ Premix) 50 mls @ 50 mls/hr IV Q8H [facility] Stop: 04/26/17 12:29 Last Admin: 04/26/17 13:47 Dose: Not Given Lactated Ringer's (Ringers, Lactated) Confirm Administered Dose 1,000 mls @ as directed .ROUTE .STK-MED ONE Stop: 04/25/17 14:46 Iodine (Iodine 2% Mild Tincture) Confirm Administered Dose 30 ml .ROUTE .STK- MED ONE Stop: 04/25/17 11:27 Last Admin: 04/25/17 13:50 Dose: 18 ml Ketorolac Tromethamine (Toradol) 15 mg IVPUSH Q8H PRN PRN Reason: Pain Last Admin: 04/25/17 21:24 Dose: 15 mg Lidocaine/Sodium Bicarbonate (Buffered Lidocaine 1% In Ns 8.4%) 0.25 ml .XX ONETIME PRN PRN Reason: Prior to IV Start Stop: 04/25/17 18:00 Last Admin: 04/25/17 10:29 Dose: 0.25 ml Lidocaine/Sodium Bicarbonate (Buffered Lidocaine 1% In Ns 8.4%) 0.25 ml SUBCUT ONETIME ONE Stop: 04/26/17 13:12 Last Admin: 04/26/17 14:27 Dose: Not Given Lorazepam (Ativan) 2 mg IVPUSH Q4H PRN PRN Reason: Seizures Magnesium Hydroxide (Milk Of Magnesia) 30 ml PO BID PRN PRN Reason: Constipation Magnesium Sulfate (Pharmacy To Dose - Magnesium Replacement) 0 dose .XX ASDIRECTED PRN PRN Reason: RX TO WATCH MAG LEVELS Metoprolol Succinate (Toprol Xl) 75 mg PO DAILY [facility] Last Admin: 04/26/17 08:39 Dose: 75 mg Metoprolol Tartrate (Lopressor) 5 mg IVPUSH Q4H PRN PRN Reason: Tachycardia Midazolam HCl (Versed 1 Mg/Ml) Confirm Administered Dose 2 mg .ROUTE .STK-MED ONE Stop: 04/25/17 11:42 Morphine Sulfate (Duramorph Pf) Confirm Administered Dose 10 mg .ROUTE .STK-MED ONE Stop: 04/25/17 11:43 Morphine Sulfate (Morphine) 2 mg IVPUSH Q2H PRN PRN Reason: Breakthrough Pain Nalbuphine HCl (Nubain) 2 mg IVPUSH ONETIME ONE Stop: 04/25/17 15:47 Last Admin: 04/25/17 16:04 Dose: 2 mg Naloxone HCl (Narcan) 0.1 mg IVPUSH Q5M PRN PRN Reason: Oversedation Ondansetron HCl (Zofran) Confirm Administered Dose 4 mg .ROUTE .STK-MED ONE Stop: 04/25/17 11:41 Ondansetron HCl (Zofran) 4 mg IVPUSH Q6H PRN PRN Reason: Nausea/Vomiting Ondansetron HCl (Zofran) 4 mg IVPUSH ONETIME PRN PRN Reason: Nausea/Vomiting Stop: 04/25/17 18:00 Oxycodone/Acetaminophen (Percocet 325-5 Mg) 2 tab PO Q4H PRN PRN Reason: Pain Last Admin: 04/26/17 10:10 Dose: 2 tab Phenylephrine HCl (Ashwin-Synephrine) Confirm Administered Dose 10 mg .ROUTE .STK- MED ONE Stop: 04/25/17 12:54 Potassium Chloride (Pharmacy To Dose - Potassium Replacement) 0 dose .XX ASDIRECTED PRN PRN Reason: RX TO WATCH K LEVELS Propofol (Diprivan 20 Ml) Confirm Administered Dose 200 mg .ROUTE .STK-MED ONE Stop: 04/25/17 11:42 Propofol (Diprivan 20 Ml) Confirm Administered Dose 200 mg .ROUTE .STK-MED ONE Stop: 04/25/17 11:42 Propofol (Diprivan 20 Ml) Confirm Administered Dose 200 mg .ROUTE .STK-MED ONE Stop: 04/25/17 11:43 Propofol (Diprivan 20 Ml) Confirm Administered Dose 200 mg .ROUTE .STK-MED ONE Stop: 04/25/17 13:25 Propofol (Diprivan 20 Ml) Confirm Administered Dose 200 mg .ROUTE .STK-MED ONE Stop: 04/25/17 13:26 Propofol (Diprivan 20 Ml) Confirm Administered Dose 200 mg .ROUTE .STK-MED ONE Stop: 04/25/17 14:08 Senna (Senna) 8.6 mg PO BID PRN PRN Reason: Constipation Sodium Chloride (Saline Flush) 10 ml FLUSH ASDIRECTED PRN PRN Reason: Keep Vein Open Stop: 04/25/17 18:00 Tranexamic Acid (Cyklokapron) Confirm Administered Dose 1,000 mg .ROUTE .STK- MED ONE Stop: 04/25/17 11:27 Last Admin: 04/25/17 14:01 Dose: 1,000 mg Triamcinolone Acetonide (Kenalog-40) Confirm Administered Dose 80 mg .ROUTE .STK -MED ONE Stop: 04/25/17 11:26 Last Admin: 04/25/17 14:28 Dose: 80 mg Vancomycin HCl (Vancomycin) Confirm Administered Dose 1 gm .ROUTE .STK-MED ONE Stop: 04/25/17 11:27 Last Admin: 04/25/17 13:58 Dose: 1 gm Zolpidem Tartrate (Ambien) 2.5 mg PO BEDTIME PRN PRN Reason: Insomnia Zolpidem Tartrate (Ambien) 5 mg PO BEDTIME PRN PRN Reason: Sleep Last Admin: 04/25/17 23:05 Dose: 5 mg *Q Meaningful Use (DIS) - VTE *Q VTE Criteria *Q: - Stroke *Q Stroke Criteria *Q: - AMI *Q AMI Criteria *Q:
--- NOTE | 2017-04-28 16:55 | PCM.OPNOTE ---
- General Post-Op/Procedure Note Date of Surgery/Procedure: 04/25/17 Operative Procedure(s): left total knee arthroplasty with bilateral ankle injections Pre Op Diagnosis: left knee osteoarthrosis with bilateral ankle subfibular impingement Post-Op Diagnosis: Same Anesthesia Technique: Local, MAC, Spinal Primary Surgeon: Rajinder Mera Anesthesia Provider: Latisha Gr Linoleum Mechanic: Deysi Vogt Linoleum Mechanic: Moreno Galindo EBL in mLs: 300 Complications: None Condition: Good
--- NOTE | 2017-04-28 18:10 | OR ---
DATE OF OPERATION: 04/25/2017 SURGEON: Rajinder Mera MD OPERATION PERFORMED: 1. Left total knee arthroplasty. 2. Bilateral ankle corticosteroid injection. PREOPERATIVE DIAGNOSIS: 1. Left knee osteoarthrosis. 2. Bilateral ankle sub-fibular impingement. POSTOPERATIVE DIAGNOSIS: 1. Left knee osteoarthrosis. 2. Bilateral ankle sub-fibular impingement. ANESTHESIA: Local MAC with spinal. ANESTHESIA PROVIDER: Dr. Latisha Gr. ASSISTANTS: Deysi Vogt LPN, and Moreno Galindo MD. ESTIMATED BLOOD LOSS: 300 mL. COMPLICATIONS: None. CONDITION: Stable. IMPLANTS: 1. [place] size 4 press-fit PS femur. 2. [place] size 4 press-fit universal tibial base plate. 3. [place] size 9 mm PS X3 polyethylene. 4. [place] 29 x 9 mm press-fit patella in cemented fashion. DESCRIPTION OF PROCEDURE: The patient was identified in the preop holding area. Proper site was marked and identified by the surgeon. The patient was taken back to the operating theater, where after adequate anesthesia, the patient was placed in the supine on a flat top table. The left lower extremity had a nonsterile tourniquet applied and it was then sterilely prepped and draped in the usual sterile fashion. OR time-out was performed. The patient received 2 g of IV Ancef. At this time, the left lower extremity was exsanguinated. Tourniquet was insufflated to 300 mmHg. A standard medial parapatellar incision was made. A medial parapatellar arthrotomy was created. Deep fibers of the MCL were raised and anterior fat pad was resected. At this time, attention was turned to the patella. The patella measured a 22 and was resected to a 13 for 29 x 9 mm patella. Drill holes were then drilled and found to be in adequate position. A drill hole was then placed in the distal femur and the intramedullary distal femoral cutting guide was placed. 8 mm was then resected off the distal femur. It was found to be adequate resection. A sizing guide was placed, it was found to be a size 4 femur. Epicondylar axis holes were drilled using [place] line and epicondyles as reference. A 4-in-1 cutting block was then placed. Anterior- posterior and anterior and posterior chamfer cuts were then completed and found to be adequate. A box cut was then completed for a size 4 femur. Attention was turned to the tibia. The posterior medial and lateral retractors were placed and an extramedullary tibial cutting guide was then placed in the old footprint of the ACL. At this time, it was aligned with the center of the ankle and roughly 0-3 degrees of posterior slope. A 9 mm was resected off the unaffected lateral side. It was found to be an adequate resection. Medial and lateral meniscus were removed along with any posterior osteophytes. A tibial trial base plate was then placed in the proper rotation and trial components were placed. A 9 mm trial spacer was placed. The patient's knee was brought into full extension, she had a full neck extension and flexion with no instability noted with good alignment. At this time, the tibial base plate was stamped and drilled in proper rotation. The femoral holes were drilled for the press-fit femur. The press-fit tibia was then opened and impacted and placed in the proper rotation in the tibia. The press-fit femur was then impacted into place. A 9 mm PS X3 polyethylene was then impacted into place. The patient's knee was brought into full extension. She had full extension, was stable throughout range of motion. The press-fit patella did not seat all the way, so we did cement it at this time. Tourniquet was deflated. Then, all bleeders were cauterized. 1 L of dilute Betadine solution along with 3 L of pulse lavage irrigation with Ancef were irrigated through the knee. A periarticular injection was then completed and at this time, a #2 barbed suture was used for closure of the medial parapatellar arthrotomy. Topical tranexamic acid was then placed along with vancomycin powder. A 2-0 Vicryl was used subcutaneously and running 3-0 Monocryl was used for the skin. A Prineo was used for the skin and a sterile soft dressing was applied. The patient tolerated that procedure well. The patient subsequently underwent bilateral ankle injections. After this was done, under a sterile technique, 1 mL of 40 mg Kenalog, 1 mL of 0.25% Marcaine were injected in the bilateral ankles. The patient tolerated this well and sent to the PACU in stable condition. MMODAL /[id number]
== END 2017-04-26 14:45 | disposition home or self-care (01) | DRG 470 ==
LOC: JD.MS 04-25 10:01 → EDSTATUS 04-25 15:15
PROVIDERS: ADMIT Orthopaedic Surgery; ATTEND Orthopaedic Surgery
PROC: 0SRD0J9 Replacement of Left Knee Joint with Synthetic Substitute, Cemented, Open Approach (ICD-10-PCS; principal; 2017-04-25)
PROC: 3E0U33Z Introduction of Anti-inflammatory into Joints, Percutaneous Approach (ICD-10-PCS; 2017-04-25)
PROC: 3E0U3BZ Introduction of Anesthetic Agent into Joints, Percutaneous Approach (ICD-10-PCS; 2017-04-25)
DX: M17.12 Unilateral primary osteoarthritis, left knee (principal); M19.079 Primary osteoarthritis, unspecified ankle and foot; I10 Essential (primary) hypertension; E03.9 Hypothyroidism, unspecified; G25.0 Essential tremor; E55.9 Vitamin D deficiency, unspecified; F32.9 Major depressive disorder, single episode, unspecified; F41.9 Anxiety disorder, unspecified; E66.9 Obesity, unspecified; Z68.39 Body mass index [BMI] 39.0-39.9, adult; R06.02 Shortness of breath; Z87.891 Personal history of nicotine dependence; Z88.2 Allergy status to sulfonamides; Z88.8 Allergy status to other drugs, medicaments and biological substances; Z79.899 Other long term (current) drug therapy
CPT/HCPCS: 01402; 36415; 73560-26-LT; 73560-LT; 80053; 85025; 87641; 94762; 97116-GP; 97162-GP; 97167-GO; 97535-GO; A9270-GY; C1713; C1776; J0171; J0690; J0697; J1200; J1885; J2250; J2270; J2300; J2370; J2405; J2704; J3010; J3301; J3370; J3490; J7120

== ENCOUNTER 2024-05-14 00:21 | Emergency (ER) | payer MEDICARE, BC ==
[2024-05-14] MEDS: hydrALAZINE 20 MG/ML SDV IVPUSH ONE (01:56)
[2024-05-14] MEDS: amLODIPine 10 MG Tab PO ONE (01:56)
[2024-05-14 03:00] VITALS: BP 148/102; PULSE 80
== END 2024-05-14 02:39 | disposition home or self-care (01) ==
LOC: JD.ED 00:21
DX: I10 Essential (primary) hypertension (principal); R00.2 Palpitations; Z90.49 Acquired absence of other specified parts of digestive tract; Z90.710 Acquired absence of both cervix and uterus; Z79.899 Other long term (current) drug therapy; Z88.2 Allergy status to sulfonamides; Z88.8 Allergy status to other drugs, medicaments and biological substances
CPT/HCPCS: 96374; 99284; J0360; A9270-GY

== ENCOUNTER 2024-07-17 20:59 | Emergency (ER) | payer MEDICARE, BC ==
[2024-07-17 21:09] VITALS: BP 157/97; PULSE 119
[2024-07-17 21:40] LABS: BASOPHILS ABSOLUTE AUTO 0.1 K/mm3 (0.0-0.2); BASOPHILS PERCENT AUTO 0.5 % (0.0-1.0); EOSINOPHILS ABSOLUTE AUTO 0.3 K/mm3 (0.0-0.4); EOSINOPHILS PERCENT AUTO 2.9 % (0.0-6.0); HEMATOCRIT 42.2 % (37.0-47.0); HEMOGLOBIN 13.9 gm/dl (12.0-16.0); IMMATURE GRAN ABSOLUTE AUTO 0.03 K/mm3 (0.00-0.05); IMMATURE GRAN PERCENT AUTO 0.3 % (0.0-0.4); LYMPHOCYTES PERCENT AUTO 32.3 % (24.0-44.0); MEAN CORPUSCULAR HEMOGLOBIN 30.3 pg (28.0-32.0); MEAN CORPUSCULAR HGB CONC 32.9 g/dl (32.0-36.0); MEAN CORPUSCULAR VOLUME 92.1 fl (83.0-99.0); MONOCYTES ABSOLUTE AUTO 0.9 K/mm3 (0.0-0.8); MONOCYTES PERCENT AUTO 9.5 % (0.0-8.0); NEUTROPHILS ABSOLUTE AUTO 5.1 K/mm3 (1.8-7.7); NEUTROPHILS PERCENT AUTO 54.5 % (41.0-71.0); PLATELET COUNT,PLT 289 K/mm3 (150-400); RED BLOOD CELL COUNT 4.58 M/mm3 (4.10-5.30); WHITE BLOOD CELL COUNT,WBC 9.39 K/mm3 (3.9-11.3)
[2024-07-17 22:02] LABS: A/G RATIO 0.9 (1-2); ALBUMIN 3.6 g/dl (3.4-5.0); ANION GAP 13.7 (5-15); BILIRUBIN TOTAL 0.3 mg/dL (0.2-1.0); BUN/CREATININE RATIO 18.9 (14-18); CALCIUM 9.5 mg/dL (8.5-10.1); CREATININE 0.9 mg/dL (0.55-1.02); EST CRCL DRUG DOSING (CG) 50.23 mL/min; MAGNESIUM 2.1 mg/dL (1.8-2.4); POTASSIUM,K 3.7 mEq/L (3.5-5.1); PROTEIN TOTAL,TP 7.6 g/dl (6.4-8.2)
[2024-07-17 22:31] LABS: TSH 1.993 uIU/mL (0.358-3.74)
== END 2024-07-17 23:18 | disposition home or self-care (01) ==
LOC: JD.ED 20:59
DX: R00.2 Palpitations (principal); I10 Essential (primary) hypertension; E03.9 Hypothyroidism, unspecified; Z90.49 Acquired absence of other specified parts of digestive tract; Z90.710 Acquired absence of both cervix and uterus; Z96.659 Presence of unspecified artificial knee joint; Z88.2 Allergy status to sulfonamides; Z88.8 Allergy status to other drugs, medicaments and biological substances; Z79.899 Other long term (current) drug therapy
CPT/HCPCS: 36415; 80053; 83735; 84443; 85025; 93005; 99285